=== PATIENT | female | born 1985 | race Two or more races ===

== ENCOUNTER 2019-11-02 11:43 | Emergency (ER) | payer OTHER, SELFPAY | END 2019-11-02 16:30 | disposition home or self-care (01) | PROVIDERS: Emergency Provider Physician Assistant; Family Provider Family Medicine; Visit Provider Physician Assistant | DX: N10 Acute pyelonephritis (principal); Z88.2 Allergy status to sulfonamides; F17.210 Nicotine dependence, cigarettes, uncomplicated ==

== ENCOUNTER 2021-10-13 14:14 | Emergency (ER) | payer MEDICAID, SELFPAY ==
[2021-10-13 14:37] VITALS: BP 157/72; PULSE 82; RESP 28; TEMP 36.5; O2SAT 97; BMI 21.6
[2021-10-13 14:56] LABS: Basophils % 0.2 %; Hematocrit 48.5 % (37.0-47.0); Hemoglobin 17.6 g/dL (11.5-15.3); Lymphocytes # 0.6 10^3/uL (0.8-4.8); Lymphocytes % 4.2 %; Mean Corpuscular HGB Conc 36.3 g/dL (30.0-36.0); Mean Corpuscular Hemoglobin 34.6 pg (28.0-34.0); Mean Corpuscular Volume 95.3 fl (81-99); Mean Platelet Volume 10.2 fL (7.4-10.4); Monocytes # 0.3 10^3/uL (0.2-0.9); Monocytes % 2.1 %; Neutrophils # 13.01 10^3/uL (1.8-7.7); Neutrophils % 93.2 %; Nucleated Red Blood Cells % 0 %; Platelet Count 278 10^3/cmm (130-400); Red Blood Count 5.09 10^6/uL (4.1-5.3); Red Cell Distribution Width 12.4 % (12.1-15.1)
--- NOTE | 2021-10-13 14:56 | ED_ITS ---
HPI - Abdominal Pain General: Chief Complaint: Abdominal Pain Stated Complaint: N/V SEVERE ABD PAINS Time Seen by Provider: 10/13/21 14:56 History of Present Illness: HPI narrative: Ms Pro is a 36 yo lady without significant history who presents with nausea, vomiting, and abdominal pain. Symtpoms started at about 1 am last night and woke her from sleep. [place] well when going to bed and can't think of specific inciting event. Since then sympomts have worsened. Pain is sharp in the mid abdomen and non radiating and severe in intensity. multiple episodes of associated non bilious and non bloody emesis. Course has persisted. No sick contacts. No other recent changes in health, exacerbating, or alleviating factors. Review of Systems General: Reports: 10 or more systems reviewed and unremarkable except in HPI and below Physical Exam Narrative: EXAM NARRATIVE: GENERAL/CONSTITUTIONAL - ill-appearing. distress due to pain Eyes - PERRL, no conjunctival injection ENMT - Atraumatic external nose and ears. dry mucous membranes NECK - supple. trachea midline CARDIOVASCULAR - regular rate and rhythm. Peripheral pulses 2+ and equal RESPIRATORY -clear to auscultation bilaterally. ABDOMEN/GI - TTP in mid region. No tenderness to percussion or evidence of remote peritonitis MSK - Extremities without obvious deformity or tenderness to palpation SKIN - Warm, Dry NEURO - alert and appropriately oriented. Moves all extremities equally. Course ED course: - Patient was seen and evaluated by me at bedside - Patient placed on cardiac monitors, IV access obtained - Initial evaluation notable for exam as above, distress due to pain - symptom treatment ordered - Labs notable for leukocytosis, hemoconcentration/dehydration - Imaging notable for RLQ inflamation without definite cause identified. - Upon serial reexamination after treatment the patient was markedly improved, she tolerated PO intake well. I discussed the case with general surgery director community organization and had a discussion with patient regarding findings. History is not classic for appendicitis. I offered admission for serial abdominal exams vs strict return precautions. Patient elected for discharge. - Based on patient history, evaluation, labs, and imaging as interpreted the most likely cause of the patient's condition is unclear, colitis vs other cause - The results of ED evaluation were discussed with the patient including prescriptions and/or symptomatic cares (if applicable) including appropriate and responsible use, followup plan, and return precautions. The patient verbalized understanding and felt safe for discharge. - Patient discharged in satisfactory condition. Vital Signs: Vital signs: Vital Signs Temperature 98.3 F 10/13/21 15:40 Pulse Rate 89 10/13/21 17:24 Respiratory Rate 17 10/13/21 17:24 Blood Pressure 130/80 10/13/21 17:24 Pulse Oximetry 96 10/13/21 17:24 MDM - Abdominal Pain Medical Records: Attestation: I reviewed the patient's medical records. Lab Data: Attestation: I reviewed the patient's lab results. Labs: Lab Results 10/13/21 10/13/21 10/13/21 14:47 14:48 14:48 WBC 14.0 10^3/uL H 10 ^3/uL (4.0-10.0) RBC 5.09 10^6/uL 10^6 /uL (4.1-5.3) Hgb 17.6 g/dL H g/dL (11.5-15.3) Hct 48.5 % H % (37.0-47.0) MCV 95.3 fl fl (81-99) MCH 34.6 pg H pg (28.0-34.0) MCHC 36.3 g/dL H g/dL (30.0-36.0) RDW 12.4 % % (12.1-15.1) Plt Count 278 10^3/cmm 10^3 /cmm (130-400) MPV 10.2 fL fL (7.4-10.4) Neut % (Auto) 93.2 % % Lymph % (Auto) 4.2 % % [place] % (Auto) 2.1 % % Eos % (Auto) 0.0 % % Baso % (Auto) 0.2 % % Neut # (Auto) 13.01 10^3/uL H 1 0^3/uL (1.8-7.7) Lymph # (Auto) 0.6 10^3/uL L 10^ 3/uL (0.8-4.8) [place] # (Auto) 0.3 10^3/uL 10^3/ uL (0.2-0.9) Eos # (Auto) 0.0 10^3/uL 10^3/ uL (0.0-0.8) Baso # (Auto) 0.0 10^3/uL 10^3/ uL (0.0-0.1) Nucleated RBC % (a uto) 0 % % Nucleated RBCs # 0.0 /100WBC /100W BC Sodium 140 mmol/L mmol/L (136-145) Potassium 3.9 mmol/L mmol/L (3.5-5.1) Chloride 99 mmol/L mmol/L (98-107) Carbon Dioxide 16 mmol/L L mmol/ L (22-29) Anion Gap 28.9 H (5-19) BUN 11 mg/dL mg/dL (6-20) Creatinine 0.4 mg/dL L mg/dL (0.5-0.9) GFR Calculation 178.6 mL/min H mL /min (90-130) Glucose 137 mg/dL H mg/dL (65-115) Calculated Osmolal ity 292 mOsm/kg mOsm/ kg (285-295) Calcium 9.6 mg/dL mg/dL (8.5-10.5) Total Bilirubin 1.4 mg/dL H mg/dL (0.15-1.2) AST 20 U/L U/L (0-32) ALT 19 U/L U/L (0-33) Alkaline Phosphata se 90 IU/L IU/L (35-105) Total Protein 7.8 g/dL g/dL (6.6-8.7) Albumin 5.2 g/dL g/dL (3.5-5.2) Globulin 2.6 g/dL g/dL (1.3-4.6) Lipase 9 U/L L U/L (13-60) HCG, Qual Negative (Negative) Urine Color Urine Appearance Urine pH Ur Specific Gravit y Urine Protein Urine Glucose (UA) Urine Ketones Urine Blood Urine Nitrate Urine Bilirubin Prot Sulfosalicyli c Acd Urine Urobilinogen Ur Leukocyte Jasmina ase Urine RBC Urine WBC Ur Squamous Epith Cells Amorphous Sediment Urine Bacteria 10/13/21 10/13/21 16:17 16:17 WBC RBC Hgb Hct MCV MCH MCHC RDW Plt Count MPV Neut % (Auto) Lymph % (Auto) [place] % (Auto) Eos % (Auto) Baso % (Auto) Neut # (Auto) Lymph # (Auto) [place] # (Auto) Eos # (Auto) Baso # (Auto) Nucleated RBC % (a uto) Nucleated RBCs # Sodium Potassium Chloride Carbon Dioxide Anion Gap BUN Creatinine GFR Calculation Glucose Calculated Osmolal ity Calcium Total Bilirubin AST ALT Alkaline Phosphata se Total Protein Albumin Globulin Lipase HCG, Qual Negative (Negative) Urine Color Yellow (Yellow) Urine Appearance Clear (CLEAR) Urine pH 9 H (5-7) Ur Specific Gravit y 1.010 (1.005-1.030) Urine Protein Trace (Negative) Urine Glucose (UA) Norm (Normal) Urine Ketones 3+ H (Negative) Urine Blood Neg (Negative) Urine Nitrate Negative (Negative) Urine Bilirubin Neg (Negative) Prot Sulfosalicyli c Acd Negative (Negative) Urine Urobilinogen Norm mg/dL mg/dL (Negative) Ur Leukocyte Jasmina ase Negative (Negative) Urine RBC 0-4 /hpf H /hpf (0-2) Urine WBC 5-10 /hpf H /hpf (0-5) Ur Squamous Epith Cells 0-4 /hpf H /hpf (0-5) Amorphous Sediment Not Reportable Urine Bacteria Trace /hpf /hpf (NONE) Discharge Plan Discharge Patient Disposition: Home Clinical Impression: Abdominal pain, Nausea & vomiting Condition: Stable Prescriptions: New ciprofloxacin HCl 500 mg tablet 500 mg PO BID Qty: 10 RF: 0 No Action lisinopril 20 mg Tablet 20 mg PO DAILY RF: 0 Cymbalta 20 mg Capsule,Delayed Release(Dr/Ec) 40 mg PO DAILY RF: 0 Discharge Orders: Discharge ED (Routine); Ordered 10/13/21 Ordered By: Raghav Mayes Referrals: Lewis Hager MD [Primary Care Provider] - Discharge Diet: Advance as tolerated and Clear Liquid Discharge Activity: Resume usual activity Patient Instructions: Acute Nausea and Vomiting (ED), Abdominal Pain (ED), Opioid Safety Activity Restrictions/Additional Instructions: Thank you for visiting the emergency department. You were seen and evaluated for nausea vomiting and abdominal pain. As discussed the exact cause of your symptoms is somewhat unclear. There is inflammation in the right lower quadrant region however your appendix is not identified. You will be given prescriptions for medications to aid with symptoms and treat colitis if present. Return to the emergency department for worsening symptoms, any pain that migrates to the right lower quadrant, or anything else that you are concerned about and feel needs emergency department evaluation. Otherwise please follow- up with your primary care provider. Coding Level of Care Code ED Dividing Machine Operator for Anabell Grigsby
--- NOTE | 2021-10-13 15:04 | CT_ITS ---
WS: [id number] CT ABDOMEN AND PELVIS WITH CONTRAST HISTORY: abd pain generalized sudden onset, n/v intractable TECHNIQUE: Imaging performed of the abdomen and pelvis with IV contrast. Single phase imaging of the abdomen. Coronal and sagittal reformats are submitted. All CT scans at [facility] use at [address] one of these dose optimization techniques: automated exposure control; mA and/or kV adjustment per patient size (includes targeted exams where dose is matched to clinical indication); or iterative re construction. IV CONTRAST: Omnipaque 300; 95 mL IV. Oral contrast: No DLP: 747.83 mGy.cm COMPARISON: 11/02/2019 Lower thorax: Lung bases are clear. Heart is normal size. Small hiatal hernia. Liver/biliary system: Normal size with no intrahepatic dilatation. Gallbladder: Well distended gallbladder with numerous stones present. No adjacent gallbladder wall th ickening. Pancreas: Normal size pancreas and pancreatic duct. No adjacent inflammation. Spleen: Normal size spleen. No mass or infarct. Adrenal glands: Normal. Right kidney: Normal. Left kidney: Normal. Aorta: Mild atherosclerosis with no aneurysm. Lymphadenopathy: None. Free fluid: Tiny amount of free fluid is physiologic. GI tract: The appendix is not identified. On the prior examination from 11/02/2019 the appendix was i dentified deep within the pelvis. On today's examination the appendix cannot be identified but there is some inflammation. There is mild mucosal thickening involving the cecum but also peripheral enhanc ement of an adjacent RIGHT ovarian cyst. Abdominal wall: Unremarkable abdominal wall. No hernia. Pelvis: No free fluid or adenopathy within the pelvis. Peripherally enhancing RIGHT ovarian cyst is p robably a collapsing corpus luteum cyst. The cyst measures 2.6 x 2.6 cm. Bones: LEFT curvature lumbar spine. CT/CT abdomen pelvis w con* [id number] IMPRESSION: 1. The appendix is not identified. There is mild mucosal thickening in the RIG HT lower quadrant and mild inflammation. Cannot exclude appendicitis. These tia nges could be related to mild colitis. 2. There is an adjacent peripherally enhancing RIGHT ovarian cyst which is a c ollapsing corpus luteum which also may be contributing to some mild inflammator y change in the RIGHT lower quadrant. 3. Tiny amount of free fluid in the cul-de-sac is physiologic. 4. Cholelithiasis. No evidence for acute cholecystitis.
[2021-10-13 15:19] LABS: Alanine Aminotransferase 19 U/L (0-33); Albumin Level 5.2 g/dL (3.5-5.2); Alkaline Phosphatase 90 IU/L (35-105); Anion Gap 28.9 (5-19); Aspartate Amino Transferase 20 U/L (0-32); Blood Urea Nitrogen 11 mg/dL (6-20); Calcium 9.6 mg/dL (8.5-10.5); Carbon Dioxide 16 mmol/L (22-29); Chloride 99 mmol/L (98-107); Globulin 2.6 g/dL (1.3-4.6); Glomerular Filtration Rate 178.6 mL/min (90-130); Glucose 137 mg/dL (65-115); Lipase 9 U/L (13-60); Osmolality Calculated 292 mOsm/kg (285-295); Potassium 3.9 mmol/L (3.5-5.1); Sodium 140 mmol/L (136-145); Total Bilirubin 1.4 mg/dL (0.15-1.2); Total Protein 7.8 g/dL (6.6-8.7)
[2021-10-13] MEDS: ondansetron 2 mg/ML SDV 2 mL 4 MG IVP (15:30)
[2021-10-13 15:32] VITALS: RESP 18; O2SAT 100
[2021-10-13] MEDS: morphine 4 mg/mL SDV 1 mL IVP (15:32)
[2021-10-13 15:38] LABS: HCG, Serum Qual Negative (Negative)
[2021-10-13] MEDS: sodium chloride 0.9% 1,000 ML 999 ML IV (15:38)
[2021-10-13 15:40] VITALS: BP 164/96; PULSE 71; RESP 17; TEMP 36.8; O2SAT 99
[2021-10-13] MEDS: iohexol 300 mg/mL 100 mL Btl IV (15:54)
[2021-10-13 16:13] VITALS: BP 136/100; PULSE 83; RESP 18; O2SAT 100
[2021-10-13 16:27] VITALS: RESP 18
[2021-10-13] MEDS: HYDROmorphone 1 mg/mL INJ 1 mL 0.5 MG IVP (16:27)
[2021-10-13] MEDS: metoclopramide 5 mg/mL SDV 2 mL 10 MG IVP (17:00)
[2021-10-13 17:11] LABS: HCG Qualitative Urine. Negative (Negative)
[2021-10-13 17:14] LABS: Bilirubin Urine Neg (Negative); Blood Urine Neg (Negative); Glucose Urine UA Norm (Normal); Ketones Urine 3+ (Negative); Leukocyte Esterase Urine Negative (Negative); Nitrate Urine Negative (Negative); Protein Urine Trace (Negative); Urine Appearance Clear (CLEAR); Urine Color Yellow (Yellow); Urobilinogen Urine Norm (Negative); pH Urine 9 (5-7)
[2021-10-13 17:15] LABS: Add Urine Culture? No; Add Urine Microscopic? YES; Bacteria Urine TRACE /hpf; RBC Urine 0-4 /hpf (0-2); Squamous Epithelial Cell Urine 0-4 /hpf (0-5); Sulfosalicylic Acid Urine Negative (Negative)
[2021-10-13 17:24] VITALS: BP 130/80; PULSE 89; RESP 17; O2SAT 96
== END 2021-10-13 19:00 | disposition home or self-care (01) ==
PROVIDERS: Emergency Provider Emergency Medicine; PCP Family Medicine
DX: R10.9 Unspecified abdominal pain (principal); R11.2 Nausea with vomiting, unspecified
CPT/HCPCS: 74177; 80053; 81001; 81025; 83690; 84703; 85025; 96361; 96374; 96375; 99284; J1170; J2270; J2405; J2765; J7030; Q9967

== ENCOUNTER 2022-05-10 12:11 | Outpatient (CLI) | payer BC, MEDICAID, SELFPAY ==
--- NOTE | 2022-05-10 12:40 | XR_ITS ---
WS: [id number] KUB, AP view, 05/10/2022 Clinical Data: BACK PAIN/EVAL FOR RENAL CALCULI Comparison: None. Findings: No abnormal intraabdominal masses are seen. There is no dilatated small bowel or evidence of obstruct ion. There are numerous gallstones in the right upper quadrant. There is a moderate amount of air in the s tomach, small bowel and colon. XR/XR abdomen 1V* [id number] Impression: Cholelithiasis.
== END 2022-05-10 12:12 | disposition home or self-care (01) ==
PROVIDERS: PCP Clinical Nurse Specialist Adult Health; Visit Provider Clinical Nurse Specialist Adult Health
DX: M54.59 Other low back pain (principal); K80.20 Calculus of gallbladder without cholecystitis without obstruction
CPT/HCPCS: 74018; 81000; 87086

== ENCOUNTER 2022-05-15 11:35 | Outpatient (CLI) | payer BC, MEDICAID, SELFPAY ==
--- NOTE | 2022-05-15 11:43 | US_ITS ---
WS: [id number] RIGHT UPPER QUADRANT ULTRASOUND HISTORY: GALL STONE COMPARISON: None available. Liver: 15.0 cm in length. Normal size liver. No bile duct dilatation or mass. Portal Vein: Normal hepatopetal flow with monophasic waveform. Gallbladder: Normally distended. Numerous stones are present in the gallbladder lumen. No pericholecy stic fluid or gallbladder wall thickening. CBD: 0.2 cm Pancreas: Normal size and echogenicity. Right kidney: 10.6 cm in length. Normal size and echogenicity. No hydronephrosis or mass. Aorta and IVC: Unremarkable abdominal aorta and IVC. No ascites. US/US gall bladder [id number] IMPRESSION: 1. Cholelithiasis, numerous stones in the gallbladder lumen. No evidence for a cute cholecystitis at this time. 2. No bile duct dilatation.
== END 2022-05-15 11:36 | disposition home or self-care (01) ==
LOC: RAD 11:35
PROVIDERS: PCP Clinical Nurse Specialist Adult Health; Visit Provider Clinical Nurse Specialist Adult Health
DX: K80.20 Calculus of gallbladder without cholecystitis without obstruction (principal)
CPT/HCPCS: 76705; 80053; 81000; 83690; 85025; 85651; 86140

== ENCOUNTER → 2022-06-07 15:14 | Outpatient (BNVA) | payer BC, MEDICAID, SELFPAY | PROVIDERS: PCP Clinical Nurse Specialist Adult Health; Visit Provider Surgery | DX: K80.20 Calculus of gallbladder without cholecystitis without obstruction (principal) | CPT/HCPCS: 99203 ==

== ENCOUNTER 2022-06-28 07:22 | Emergency (ER) | payer BC, MEDICAID, SELFPAY ==
[2022-06-28] VITALS (9 sets, daily range): BP systolic 140–187; BP diastolic 94–127; PULSE 60–80; RESP 16–22; TEMP 36.9; O2SAT 97–100; BMI 21.1
--- NOTE | 2022-06-28 | US_ITS ---
WS: [id number] ULTRASOUND ABDOMEN LIMITED CLINICAL INFORMATION: RUQ abd pain COMPARISON: Ultrasound May 15, [address] 06/28/22 FINDINGS: Liver Size: Mild hepatomegaly. Craniocaudal length: 16.2 cm. Echogenicity: Normal. Surface nodularity: None. Mass (size and location): None. Bile ducts Intrahepatic ducts: Normal. Common bile duct diameter: 0.5 cm. Gallbladder Cholelithiasis Gallstones: Present Gallbladder sludge: None. Gallbladder wall thickening: None. Pericholecystic fluid: None. Sonographic Monte sign: Absent. Pancreas Normal as visualized. Right kidney: Normal. Hydronephrosis: None. Size: 10.9 cm x 4.8 cm x 4.4 cm. Abdominal aorta and IVC Visualized portions are normal. Ascites: None. US/US gall bladder [id number] IMPRESSION: 1. Mild hepatomegaly. 2. Shadowing cholelithiasis. No gallbladder wall thickening or pericholecystic fluid. 3. Normal common bile duct. 4. No hydronephrosis in RIGHT kidney.
--- NOTE | 2022-06-28 07:35 | ED_ITS ---
HPI - Abdominal Pain General: Chief Complaint: Abdominal Pain Stated Complaint: abdomen pain Time Seen by Provider: 06/28/22 07:25 Source: patient Mode of arrival: EMS History of Present Illness: 37-year-old female presents emergency room complaining of severe abdominal pain. Patient states she has been constipated the last 4 days has had nausea and vomiting. Planing of severe periumbilical pain radiating throughout her abdomen. She recently was worked up and had findings of cholelithiasis without cholecystitis and she is scheduled next week to have a cholecystectomy with Dr. Hood. She denies any fever sweats or chi lls she is having significant dry heaving on arrival here at home she has not passed any stool last several days has had vomiting that began overnight she denies any hematemesis or coffee-ground emesis. No other symptoms. No dysuria urgency or frequency. Her only previous abdominal surgery was a laparoscopic assisted vaginal hysterectomy. Patient does not use any medical marijuana. MD elicited complaint: abdominal pain Pertinent past history: constipation Onset (ago): hour(s) Pain Consistency: constant Location: Periumbilical Severity: severe Quality: cramping Radiation: none Exacerbating factors: nothing Relieving factors: nothing Associated Symptoms: Reports bloating, constipation, GI cramping, nausea and poor appetite; Denies anorexia, belching, change in bowel habits, change in stool character, chills, coffee ground emesis, diarrhea, dyspepsia, dysuria, excessive flatus, fever(s), heartburn, hematochezia, hematuria, hematemesis, fecal incontinence, loose stools, melena, syncope and vomiting Review of Systems Const: Denies: fever(s) or chills Card: Denies: syncope GI: Reports: nausea, constipation, bloating and GI cramping; Denies: vomiting, hematemesis, coffee ground emesis, heartburn, diarrhea, belching, excessive flatus, fecal incontinence, change in bowel habits, change in stool character, hematochezia or melena : Denies: dysuria or hematuria PFSH ED PFSH: Medical History Hypertension Surgical History Hx of facial fracture repair Hx of hysterectomy Hx of tonsillectomy Social History Smoking and tobacco status: current every day smoker Physical Exam Const: COMMON NORMALS: no acute distress GENERAL APPEARANCE: cooperative and comfortable ORIENTATION/CONSCIOUSNESS: Yes awake, Yes oriented to person, Yes oriented to place and Yes oriented to time HENMT: COMMON NORMALS: normocephalic, atraumatic and hearing grossly normal bilaterally HEAD & SCALP: normocephalic and atraumatic Resp: COMMON NORMALS: normal respiratory effort, No retractions, No use of accessory muscles and clear to auscultation bilaterally AUSCULTATION: clear to auscultation bilaterally Cardio: COMMON NORMALS: regular rate, regular rhythm and No murmurs present (C ardio) RATE: regular rate RHYTHM: regular rhythm GI: COMMON NORMALS: No hepatosplenomegaly present AUSCULTATION: Yes normoactive bowel sounds PALPATION: Yes Tenderness to palpation present (GI) (Epigastric right upper quadrant tenderness no guarding or rebound), No Guarding due to palpation present (GI) and Yes No hepatosplenomegaly present Extremity: COMMON NORMALS: normal to inspection, capillary refill normal, no clubbing, cyanosis or edema, no calf tenderness and no pedal edema Neuro: SENSORIUM/ORIENTATION: Yes oriented to person, Yes oriented to place and Yes oriented to time Skin: COMMON NORMALS: no rashes or lesions noted GENERAL SKIN EXAM: no rashes or lesions noted Course Vital Signs: Vital signs: Vital Signs Temperature 98.5 F 06/28/22 07:28 Pulse Rate 80 06/28/22 11:30 Respiratory Rate 22 H 06/28/22 11:30 Blood Pressure 170/115 06/28/22 11:30 Pulse Oximetry 98 06/28/22 11:30 Oxygen Delivery Me thod 06/28/22 11:30 MDM - Abdominal Pain Medical Decision Making Patient is scheduled for cholecystectomy discussed with Dr. Hood who felt she was more constipated. White count is not elevated liver enzymes are in normal ranges as well as a bilirubin. Dr. Hood came to the ER seen the patient and recommended laxative and enema patient declined and ultimately left AMA Medical Records I reviewed the patient's medical records. Lab Data I reviewed the patient's lab results. : 06/28/22 07:53 06/28/22 07:53 Labs/Radiology: Radiology Impressions Gallbladder Ultrasound 06/28/22 00:00 IMPRESSION: 1. Mild hepatomegaly. 2. Shadowing cholelithiasis. No gallbladder wall thickening or pericholecystic fluid. 3. Normal common bile duct. 4. No hydronephrosis in RIGHT kidney. Abdomen/Pelvis CT 06/28/22 07:35 IMPRESSION: 1. Cholelithiasis. No gallbladder wall thickening or pericholecystic fluid. 2. No hydronephrosis in either kidney. 3. Dense rectosigmoid constipation with distention of the rectum. 4. No free fluid in the abdomen or pelvis. 5. Normal appendix in the RIGHT lower quadrant pelvis 6. No other suspicious findings. Laboratory Results WBC 10.9 10^3/uL (4.0-10.0) H 06/28/22 07:53 RBC 4.54 10^6/uL (4.1-5.3) 06/28/22 07:53 Hgb 16.1 g/dL (11.5-15.3) H 06/28/22 07:53 Hct 49.5 % (37.0-47.0) H 06/28/22 07:53 MCV 109.0 fl (81-99) H 06/28/22 07:53 MCH 35.5 pg (28.0-34.0) H 06/28/22 07:53 MCHC 32.5 g/dL (30.0-36.0) 06/28/22 07:53 RDW 13.2 % (12.1-15.1) 06/28/22 07:53 Plt Count 247 10^3/cmm (130-400) 06/28/22 07:53 MPV 9.7 fL (7.4-10.4) 06/28/22 07:53 Neut % (Auto) 77.6 % 06/28/22 07:53 Lymph % (Auto) 14.6 % 06/28/22 07:53 [place] % (Auto) 5.4 % 06/28/22 07:53 Eos % (Auto) 1.7 % 06/28/22 07:53 Baso % (Auto) 0.4 % 06/28/22 07:53 Neut # (Auto) 8.49 10^3/uL (1.8-7.7) H 06/28/22 07:53 Lymph # (Auto) 1.6 10^3/uL (0.8-4.8) 06/28/22 07:53 [place] # (Auto) 0.6 10^3/uL (0.2-0.9) 06/28/22 07:53 Eos # (Auto) 0.2 10^3/uL (0.0-0.8) 06/28/22 07:53 Baso # (Auto) 0.0 10^3/uL (0.0-0.1) 06/28/22 07:53 Nucleated RBC % (auto) 0 % 06/28/22 07:53 Nucleated RBCs # 0.0 /100WBC 06/28/22 07:53 Sodium 138 mmol/L (136-145) 06/28/22 07:53 Potassium 3.6 mmol/L (3.5-5.1) 06/28/22 07:53 Chloride 102 mmol/L (98-107) 06/28/22 07:53 Carbon Dioxide 19 mmol/L (22-29) L 06/28/22 07:53 Anion Gap 20.6 (5-19) H 06/28/22 07:53 BUN 8 mg/dL (6-20) 06/28/22 07:53 Creatinine 0.5 mg/dL (0.5-0.9) 06/28/22 07:53 GFR Calculation 137.4 mL/min (90-130) H 06/28/22 07:53 Glucose 125 mg/dL (65-115) H 06/28/22 07:53 Calculated Osmolality 286 mOsm/kg (285-295) 06/28/22 07:53 Calcium 9.1 mg/dL (8.5-10.5) 06/28/22 07:53 Total Bilirubin 1.2 mg/dL (0.15-1.2) 06/28/22 07:53 AST 21 U/L (0-32) 06/28/22 07:53 ALT 16 U/L (0-33) 06/28/22 07:53 Alkaline Phosphatase 96 U/L (35-105) 06/28/22 07:53 Total Protein 7.0 g/dL (6.6-8.7) 06/28/22 07:53 Albumin 4.6 g/dL (3.5-5.2) 06/28/22 07:53 Globulin 2.4 g/dL (1.3-4.6) 06/28/22 07:53 Lipase 13 U/L (13-60) 06/28/22 07:53 Discharge Plan Discharge Patient Disposition: Left Against Medical Advice Clinical Impression: Constipation, Cholelithiasis Condition: Stable Prescriptions: No Action sertraline [Zoloft] 25 mg tablet 25 mg PO QAM ondansetron 4 mg tablet,disintegrating 4 mg PO Q6H PRN (Reason: nausea and vomiting) Qty: 60 0RF lisinopril 20 mg tablet 20 mg PO BID hydrocodone-acetaminophen 5-325 mg tablet 1 tab PO Q6H PRN (Reason: Pain) pantoprazole 40 mg tablet,delayed release (DR/EC) 40 mg PO DAILY Referrals: Clovis Mcnair, [facility] REPORT DEVELOPER [Primary Care Provider] - Coding Level of Care Code ED Auto Damage Adjuster for Anabell Grigsby
--- NOTE | 2022-06-28 07:35 | CT_ITS ---
WS: [id number] CT ABDOMEN PELVIS TECHNIQUE: Noncontrast CT of the abdomen and pelvis with coronal and sagittal reformatted images. CLINICAL INFORMATION: Abdominal pain COMPARISON: CT abdomen pelvis October 13, 2021 DLP: 391.[address] scans at [facility] use at least one of these dose optimization techniques: automated e xposure control; mA and/or kV adjustment per patient size (includes targeted exams where dose is matc hed to clinical indication); or iterative reconstruction. FINDINGS: Dense cholelithiasis. Mild hepatomegaly. Noncontrast spleen is normal. Lung bases are well aerated. A drenal glands are normal. Normal GE junction. Normal appendix in the RIGHT lower quadrant. No evidence of acute appendicitis. Lung bases are well a erated. Adrenal glands are normal. No hydronephrosis in either kidney. Normal caliber abdominal aorta. Mild aortic calcification. Fat-containing umbilical hernia Rectosigmoid constipation with distention of the rectum. No free fluid in the abdomen or pelvis. Hyst erectomy. CT/CT abdomen pelvis wo con [id number] IMPRESSION: 1. Cholelithiasis. No gallbladder wall thickening or pericholecystic fluid. 2. No hydronephrosis in either kidney. 3. Dense rectosigmoid constipation with distention of the rectum. 4. No free fluid in the abdomen or pelvis. 5. Normal appendix in the RIGHT lower quadrant pelvis 6. No other suspicious findings.
[2022-06-28] MEDS: ondansetron 2 mg/ML SDV 2 mL 4 MG IVP (07:47)
[2022-06-28] MEDS: sodium chloride 0.9% 1,000 ML 999 ML IV ×2 (07:47→09:53)
[2022-06-28] MEDS: HYDROmorphone 1 mg/mL INJ 1 mL 0.5 MG IVP ×4 (07:48→09:52)
[2022-06-28 08:00] LABS: Basophils % 0.4 %; Eosinophils # 0.2 10^3/uL (0.0-0.8); Eosinophils % 1.7 %; Hematocrit 49.5 % (37.0-47.0); Hemoglobin 16.1 g/dL (11.5-15.3); Lymphocytes # 1.6 10^3/uL (0.8-4.8); Lymphocytes % 14.6 %; Mean Corpuscular HGB Conc 32.5 g/dL (30.0-36.0); Mean Corpuscular Hemoglobin 35.5 pg (28.0-34.0); Mean Platelet Volume 9.7 fL (7.4-10.4); Monocytes # 0.6 10^3/uL (0.2-0.9); Monocytes % 5.4 %; Neutrophils # 8.49 10^3/uL (1.8-7.7); Neutrophils % 77.6 %; Nucleated Red Blood Cells % 0 %; Platelet Count 247 10^3/cmm (130-400); Red Blood Count 4.54 10^6/uL (4.1-5.3); Red Cell Distribution Width 13.2 % (12.1-15.1); White Blood Count 10.9 10^3/uL (4.0-10.0)
[2022-06-28 08:26] LABS: Alanine Aminotransferase 16 U/L (0-33); Albumin Level 4.6 g/dL (3.5-5.2); Alkaline Phosphatase 96 U/L (35-105); Aspartate Amino Transferase 21 U/L (0-32); Blood Urea Nitrogen 8 mg/dL (6-20); Calcium 9.1 mg/dL (8.5-10.5); Carbon Dioxide 19 mmol/L (22-29); Chloride 102 mmol/L (98-107); Globulin 2.4 g/dL (1.3-4.6); Glomerular Filtration Rate 137.4 mL/min (90-130); Glucose 125 mg/dL (65-115); Lipase 13 U/L (13-60); Osmolality Calculated 286 mOsm/kg (285-295); Sodium 138 mmol/L (136-145); Total Bilirubin 1.2 mg/dL (0.15-1.2)
[2022-06-28] MEDS: promethazine 25 mg/mL SDV 1 mL IM (08:39)
[2022-06-28 08:41] LABS: Anion Gap 20.6 (5-19); Potassium 3.6 mmol/L (3.5-5.1)
--- NOTE | 2022-06-28 12:01 | PC.NURSE ---
Patient at nurses station demanding to leave. This RN apolgized for wait time offered to speak with physician to request more pain meds, and continue care. Pt stating she wants her IV taken out she will go somewhere else. This RN removed IV, pt signed AMA form
== END 2022-06-28 12:07 | disposition left against medical advice (07) ==
PROVIDERS: Physician Assistant; Emergency Provider Family Medicine; PCP Clinical Nurse Specialist Adult Health
DX: K80.20 Calculus of gallbladder without cholecystitis without obstruction (principal); K59.00 Constipation, unspecified; I10 Essential (primary) hypertension
CPT/HCPCS: 74176; 76705; 80053; 83690; 85025; 96361; 96372; 96374; 96375; 96376; 99285; J1170; J2405; J2550; J7030

== ENCOUNTER 2022-07-05 09:42 | Day surgery (SDC) | payer BC, MEDICAID, SELFPAY ==
[2022-07-03 12:05] VITALS: BMI 21.1
[2022-07-05] VITALS (9 sets, daily range): BP systolic 124–150; BP diastolic 79–107; PULSE 112–121; RESP 15–28; TEMP 36.6–37.8; O2SAT 93–97
[2022-07-05] MEDS: sodium chloride 0.9% 1,000 ML 30 ML IV (10:07)
--- NOTE | 2022-07-05 10:22 | W.PM.OPSUD ---
Surgery/Procedure H&P Update DATE OF PROCEDURE: July 05, 2022 DATE H&P PERFORMED: 06/07/22 PREOP DIAGNOSIS: symptomatic cholelithiasis PLANNED PROCEDURE: Operation Date: 07/05/22 11:15 Proposed Procedures p Laparoscopic Cholecystectomy [id number](Not Applicable) - Alfonso Hood DO
--- NOTE | 2022-07-05 10:27 | ANES.PREANE2 ---
Pre-Anesthetic Assessment Height/Weight: Height 1.63 m Weight 55.792 kg Temp Pulse Resp BP Pulse Ox O2 Del Method 100.1 F H 112 H 18 150/107 97 07/05/22 09:50 07/05/22 09:50 07/05/22 09:50 07/05/22 09:50 07/05/22 09:50 07/05/22 09:50 Preop Diagnosis: symptomatic cholelithiasis Operation Date: 07/05/22 11:15 Proposed Procedures p Laparoscopic Cholecystectomy 48692(Not Applicable) - Alfonso Hood DO Familial anesthetic complications: None Was Beta Rowena taken within 24 hours: N/A Was Clonidine taken within 24 hours: N/A Last intake: Intake Last Liquid Date 07/05/22 Last Liquid Time 00:00 Last Solid Date 07/04/22 Last Solid Time 21:00 Social No alcohol and No tobacco Exam alert, oriented x 3, clear to auscultation bilaterally and regular rate & rhythm Airway Submandibular: within normal limits Cervical ROM: within normal limits Mallampati: Class I Comments: Comments: False upper teeth History/ROS No significant complaints Pulmonary None reported CV/HEM Hypertension None reported Hepatic None reported GI Cholelithisais Metabolic None reported Musc/skel None reported Neuropsych None reported Anesthetic Plan ASA status: 2 Anesthesia: Anesthesia Evaluation and General Other: We discussed risk and benefits of general anesthesia including PONV, sore throat (sometimes severe), corneal abrasion, positioning and peripheral nerve injuries, life threatening allergic reaction, post operative ICU admission requiring prolonged intubation, stroke, heart attack, , and rare incidences of recall. Patient consents to proceed with general anesthesia. Patient very self conscious about her upper false teeth. We discussed rational for removing prior to surgery, which patient does understand, however this made her very tearful. She apologized for being emotional, which I empathized with stating I completely understood and there was no reason for her to apologize, recongizing we each have our own set of things that bother us. Plan to go to OR with false teeth in discussed with INTERNET ASSESSOR. In OR will remove her false teeth prior to induction, and put back in as soon as patient is recovered and able to put her teeth in herself. Pre op midazolam and scopalamine patch ordered. Risk of > 500 ml blood loss (7ml/kg in children): No Medications/Allergies Home Medications Medication Instructions Recorded Confirmed Last Taken Type lisinopril 20 mg tablet 20 mg PO BID 06/07/22 07/05/22 07/04/22 History sertraline 25 mg tablet (Zoloft) 25 mg PO QAM 06/07/22 07/05/22 07/04/22 History ondansetron 4 mg disintegrating 4 mg PO Q6H PRN nausea and 06/20/22 07/03/22 Unknown Rx tablet vomiting #60 tabs pantoprazole 40 mg tablet,delayed 40 mg PO DAILY 06/28/22 07/05/22 07/04/22 History release Allergies Allergy/AdvReac Type Severity Reaction Status Date / Time Sulfa (Sulfonamide Allergy ADR-Swelling Verified 07/05/22 09:48 Antibiotics) of the Eye Current Medications Generic Name Dose Route Start Last Admin Trade Name Freq PRN Reason Stop Dose Admin Sodium Chloride 1,000 mls @ 30 mls/hr 07/05/22 09:45 07/05/22 10:07 Sodium Chloride 0.9% IV 07/06/22 09:44 30 mls/hr .Q24H ROCIO Administration PFSH Anesthesia Medical History Hypertension Surgical History Hx of facial fracture repair Hx of hysterectomy Hx of tonsillectomy Social History Smoking and tobacco status: current every day smoker Data Anesthesia Cardiac Studies: No Data to Display
[2022-07-05] MEDS: scopolamine 1.5 Patch 1 PATCH TRANSDERMA (10:33)
[2022-07-05] MEDS: midazolam 1 mg/mL INJ 2 mL 2 MG IVP (10:41)
[2022-07-05] MEDS: ceFAZolin 2,000 MG in sodium chloride 0.9% (plus) 50 ML 100 MG IV (10:42)
--- NOTE | 2022-07-05 11:32 | P.OP_ITS ---
Operative Report Date of procedure: July 05, 2022 Pre-op diagnosis: Preop Diagnosis symptomatic cholelithiasis Post-op diagnosis: same Procedure done: Laparoscopic cholecystic drain Specimens removed/disposition: Gallbladder Surgeon: Dr. Alfonso Hood DO Anesthesia: General Estimated blood loss (mL): 5 Complications: None apparent Brief History: This is a 37-year-old female that presented with symptomatic cholelithiasis. Laparoscopic cholecystectomy was indicated. The risks and benefits of the procedure were explained and documented. Procedure: Patient was wheeled into the operative room and placed on the OR table in a supine position. Abdomen was inspected prepped and draped in usual sterile fashion. Time-out was performed and all present were in agreement. A 15 blade scalp was used to make a stab incision in the left upper quadrant and intra- abdominal insufflation was achieved using a Veress needle. After localizing the tissue incisions were made and a 5 millimeter trocar was placed into the umbilicus as well as 2 in the right upper quadrant. A 12 millimeter trocar was placed in the epigastrium. Gallbladder was grasped and elevated. The triangle of Calot was carefully dissected using blunt dissection and electrocautery until the triangle of Calot clearly identified. The cystic duct was clipped proximally and double clipped distally. The duct was then ligated proximally. The cystic artery was doubly clipped and ligated. The gallbladder was then removed from the liver bed using electrocautery. The gallbladder was removed from the abdomen using an Endo-Catch bag through the epigastric incision. The liver bed was inspected and no bleeding was seen. The abdomen was irrigated and suctioned. All ports removed. Skin was washed and dried. Incisions were closed with 3-0 and 4-O Vicryl in a subcuticular interrupted fashion. Skin glue was applied. Patient tolerated the procedure well.
[2022-07-05] MEDS: fentaNYL 50 mcg/mL INJ 2mL IVP (11:46)
[2022-07-05] MEDS: HYDROcodone-acetaminophen 7.5-325 mg Tablet 1 TAB PO (12:10)
--- NOTE | 2022-07-05 15:11 | ANE.PACU2 ---
Inpatient post-anesthesia follow up: Airway intact: Yes Vital signs: Temperature 98 F Pulse Rate 117 Respiratory Rate 15 Blood Pressure 124/79 Pulse Oximetry 95 Oxygen Delivery Me thod Room Air Oxygen Flow Rate 6 Fraction of Inspir ed Oxygen Hydration adequate: Yes Nausea and vomiting: No Pain level: 1 Mental status: Baseline
== END 2022-07-05 12:45 | disposition home or self-care (01) ==
PROVIDERS: PCP Clinical Nurse Specialist Adult Health; Visit Provider Surgery
PROC: 0FT44ZZ Resection of Gallbladder, Percutaneous Endoscopic Approach (ICD-10-PCS; CPT 47562; principal; 2022-07-05 11:05)
DX: K80.10 Calculus of gallbladder with chronic cholecystitis without obstruction (principal); F17.200 Nicotine dependence, unspecified, uncomplicated; Z88.2 Allergy status to sulfonamides
CPT/HCPCS: 47562; 88304; J1100; J1170; J1200; J1885; J2250; J2405; J2704; J3010; J3490; J7030

== ENCOUNTER 2022-08-13 10:47 | Outpatient (CLI) | payer BC, MEDICAID, SELFPAY ==
--- NOTE | 2022-08-13 10:59 | XRR_ITS ---
PROCEDURE INFORMATION: Exam: XR Left Hand Exam date and time: 08/13/2022 11:02 AM Age: 37 years old Clinical indication: Pain and injury or trauma; Blunt trauma (contusions or hematomas); Injury details: Fell, tried to catch fall with left had, pain and swelling in the hand now; Additional info: Left hand pain after a fall TECHNIQUE: Imaging protocol: Radiologic exam of the Left hand. Views: 3 or more views. COMPARISON: No relevant prior studies available. FINDINGS: Bones/joints: Negative for acute bony abnormality Soft tissues: Normal. XR/XR hand LT min 3V* [id number] IMPRESSION: No acute findings.
== END 2022-08-13 10:48 | disposition home or self-care (01) ==
PROVIDERS: PCP Clinical Nurse Specialist Adult Health; Visit Provider Clinical Nurse Specialist Adult Health
DX: M79.642 Pain in left hand (principal)
CPT/HCPCS: 73130

== ENCOUNTER → 2022-11-06 10:06 | Outpatient (BNVA) | payer BC, MEDICAID, SELFPAY | PROVIDERS: PCP Clinical Nurse Specialist Adult Health; Visit Provider Nurse Practitioner Family | DX: J11.1 Influenza due to unidentified influenza virus with other respiratory manifestations (principal) | CPT/HCPCS: 87400 ==

== ENCOUNTER 2023-02-27 10:30 | Emergency (ER) | payer BC, MEDICAID, SELFPAY ==
[2023-02-27 11:32] VITALS: BP 147/81; PULSE 82; RESP 16; TEMP 36.9; O2SAT 98
--- NOTE | 2023-02-27 11:54 | XR_ITS ---
WS: [id number] Exam: XR finger RT min 2V [id number] Date/Time of Exam: 02/27/2023 11:56 AM Reason For Exam: trauma/infection The right index finger is targeted for radiographic evaluation. No acute fracture or dislocation. No bone destruction. An opaque density is seen in the distal soft t issues of the index finger and may represent a foreign body. XR/XR finger RT min 2V [id number] IMPRESSION: 1. No bony injury or bone destruction. 2. Complex opaque density seen in the distal soft tissues of the index finger t hat could be a foreign body.
--- NOTE | 2023-02-27 11:55 | W.ED.EXTPRO ---
HPI - Extremity Problem General: Chief complaint: Extremity Injury, Upper Stated complaint: right index finger injury Time Seen by Provider: 02/27/23 11:38 Source: patient Mode of arrival: ambulatory Limitations: no limitations History of Present Illness: Patient is a nice 37-year-old female presents to ED today with concerns of an infection to her right index finger. Patient states 2 days ago while chopping vegetables she accidentally amputated the very distal portion of her palmar fat pad. Patient was seen at urgent care and had the distal wound cauterized with silver nitrate. She states since then she has now noticed swelling and redness and worsening pain. MD Complaint: extremity pain Onset (ago): day(s) Pain Consistency: constant Location: right Radiation: none Relieving factors: nothing Exacerbating factors: nothing Associated symptoms: Deny fever(s) Review of Systems Const: Denies: fever(s), chills, body aches, fatigue or malaise Musc: Reports: extremity pain (R index finger) Neuro: Denies: numbness in extremities or sensory changes PFSH ED PFSH: Medical History Hypertension Major depression Traumatic amputation of tip of finger of right hand Visual impairment of right eye Surgical History Hx of facial fracture repair Hx of hysterectomy Hx of tonsillectomy S/P cholecystectomy Family History Father Cancer prostate Other Hyperlipidemia Social History Smoking and tobacco status: current every day smoker Alcohol intake: current Alcohol intake frequency: holidays/special occasions only Physical Exam Const: COMMON NORMALS: no acute distress, average body habitus, patient oriented x3, no limitations, healthy appearing, alert and well nourished Resp: COMMON NORMALS: normal respiratory effort Cardio: COMMON NORMALS: regular rate and regular rhythm RATE: regular rate RHYTHM: regular rhythm Extremity: GENERAL: Yes normal exam except as noted Fingers-Fingertip Front+Back: 1. distal finger pad amputated; silver nitrate cauterization evident and silver nitrate staining to distal finger tip noted-this could be removed somewhat with alcohol swab; palmar pad does appear red and slightly swollen; no felon noted Neuro: COMMON NORMALS: patient oriented x3, moves all extremities, no focal motor deficits and no sensory deficits noted SENSORIUM/ORIENTATION: Yes alert Skin: NARRATIVE SKIN EXAM: see above Course Vital Signs: Vital signs: Vital Signs Temperature 98.5 F 02/27/23 11:32 Pulse Rate 82 02/27/23 11:32 Respiratory Rate 16 02/27/23 11:32 Blood Pressure 147/81 02/27/23 11:32 Pulse Oximetry 98 02/27/23 11:32 MDM - Extremity (Nontraumatic) Medical Decision Making Silver nitrate staining noted to finger tip and discoloration does not represent necrosis-was able to somewhat wipe off with alcohol swab. Density noted on XR consistent with silver nitrate and not a foreign body especially given her history. She was given IM Ancef and and will place on Keflex at home. No felon or drainable infection at this time. Will place referral for case management for ortho follow up. Return to ED precautions given. Lab Data Radiology Impressions Finger X-Ray 02/27/23 11:54 IMPRESSION: 1. No bony injury or bone destruction. 2. Complex opaque density seen in the distal soft tissues of the index finger that could be a foreign body. Discharge Plan Discharge Patient Disposition: Home Clinical Impression: Traumatic amputation of tip of finger Qualifiers: Encounter type: subsequent encounter Qualified Code(s): S68.119D - Complete traumatic metacarpophalangeal amputation of unspecified finger, subsequent encounter Cellulitis of index finger Qualifiers: Laterality: right Qualified Code(s): L03.011 - Cellulitis of right finger Condition: Stable Prescriptions: New hydrocodone-acetaminophen 5-325 mg tablet 1 tab PO Q6H PRN (Reason: pain) Qty: 14 0RF cephalexin 500 mg capsule 500 mg PO Q6H 7 Days Qty: 28 0RF No Action (DME) left hand hand brace See Rx Instructions .Route .MEDSUPPLY Qty: 1 0RF Rx Instructions: As directed for suspected fracture of 4th and/or 5th metacarpal sertraline [Zoloft] 25 mg tablet 25 mg PO QAM Qty: 30 11RF lisinopril 20 mg tablet 20 mg PO BID Discharge Orders: Discharge ED (Routine); Ordered 02/27/23 Ordered By: Lupe Ibarra Referrals: Clovis Mcnair NP [Primary Care Provider] - Activity Restrictions/Additional Instructions: Begin your antibiotics immediately. Case management should contact you to set you up with your orthopedic follow-up appointment. Keep wound clean with warm soap and water. You need to return to the emergency department for worsening pain, redness, swelling, fevers, or any other concerns you may have. Coding Level of Care Code ED Reciprocating Drill Operator for Anabell Grigsby
[2023-02-27] MEDS: ceFAZolin 1,000 MG in water for injection-sterile 2.5 ML 1 MG IM (13:08)
--- NOTE | 2023-02-27 13:15 | PC.NURSE ---
pt finger soaked in betadine. black color coming off.
--- NOTE | 2023-02-27 13:20 | DCPLANNER ---
Addendum entered by Alice Wheeler 02/28/23 08:27: communications station manager received the following message from the ortho clinic regarding follow up appointment: spoke to patient - she didnt really feel like she needed an ortho f/u at this time. she will see how the round of anti biotics takes. I told her to give us a call if she changes her mind Original Note: communications station manager had message to schedule a follow up appointment for patient with ortho. communications station manager sent patients information to the front office staff at ortho. Patients information will be printed and reviewed. Clinic will call patient with appointment information.
== END 2023-02-27 13:10 | disposition home or self-care (01) ==
PROVIDERS: Emergency Provider Physician Assistant; PCP Clinical Nurse Specialist Adult Health
DX: S68.119A Complete traumatic metacarpophalangeal amputation of unspecified finger, initial encounter (principal); L03.011 Cellulitis of right finger; S68.110A Complete traumatic metacarpophalangeal amputation of right index finger, initial encounter; F17.210 Nicotine dependence, cigarettes, uncomplicated; I10 Essential (primary) hypertension; W26.0XXA Contact with knife, initial encounter
CPT/HCPCS: 73140; 96372; 99284; J0690

== ENCOUNTER → 2023-03-14 09:59 | Outpatient (BNVA) | payer BC, MEDICAID, SELFPAY | PROVIDERS: PCP Clinical Nurse Specialist Adult Health; Visit Provider Nurse Practitioner Family | DX: S68.120D Partial traumatic metacarpophalangeal amputation of right index finger, subsequent encounter (principal); X58.XXXD Exposure to other specified factors, subsequent encounter | CPT/HCPCS: 73130 ==

== ENCOUNTER → 2023-09-23 14:25 | Outpatient (BNVA) | payer BC, MEDICAID, SELFPAY | PROVIDERS: PCP Clinical Nurse Specialist Adult Health; Visit Provider Clinical Nurse Specialist Adult Health | DX: J06.9 Acute upper respiratory infection, unspecified (principal); R11.2 Nausea with vomiting, unspecified | CPT/HCPCS: 87426 ==

== ENCOUNTER 2023-10-30 12:44 | Emergency (ER) | payer BC, MEDICAID, SELFPAY ==
[2023-10-30 12:53] VITALS: BP 167/120; PULSE 107; RESP 16; TEMP 36.6; O2SAT 98; BMI 22.6
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
--- NOTE | 2023-10-30 13:37 | CTR_ITS ---
PROCEDURE INFORMATION: Exam: CT Abdomen And Pelvis Without Contrast Exam date and time: 10/30/2023 2:34 PM Age: 38 years old Clinical indication: Abdominal pain; Other: Bilat flank; Prior surgery; Surgery date: 6+ months; Surgery type: Gb. Hysterectomy; Patient HX: Bilateral flank pain with hematuria. ; Additional info: Rj flank pain, hematuria TECHNIQUE: Imaging protocol: Computed tomography of the abdomen and pelvis without contrast. Radiation optimization: All CT scans at this facility use at least one of these dose optimization techniques: automated exposure control; mA and/or kV adjustment per patient size (includes targeted exams where dose is matched to clinical indication); or iterative reconstruction. REPORTING DATA: Count of CT and Cardiac NM exams in prior 12 months: This patient has received 0 known CTs and 0 known cardiac nuclear medicine studies in the 12 months prior to the current study. COMPARISON: CT abdomen pelvis wo con [id number] 06/28/2022 8:56 AM RADIATION DOSE METRICS: Total DLP (mGy-cm): 245.83 FINDINGS: Liver: Findings consistent with fatty infiltration of the liver are identified. There is some areas of fatty sparing in the liver. No definite liver mass. Gallbladder and bile ducts: There has been a cholecystectomy. Pancreas: Normal. No ductal dilation. Spleen: Normal. No splenomegaly. Adrenal glands: Normal. No mass. Kidneys and ureters: There are punctate right renal calcifications. Mild bilateral hydronephrosis is suspected. There is probable inflammation along the mid and distal ureter. For example, as seen on series 3, image 117. No definite obstructing ureteral mass or calcification. No renal emphysema or abscess. Stomach and bowel: Unremarkable. No obstruction. No mucosal thickening. Appendix: The appendix is visualized and appears normal. Intraperitoneal space: Unremarkable. No free air. No significant fluid collection. Vasculature: Unremarkable. No abdominal aortic aneurysm. Lymph nodes: Unremarkable. No enlarged lymph nodes. Urinary bladder: The bladder is decompressed which limits evaluation. Reproductive: There has been a hysterectomy. Bones/joints: Degenerative change is identified in the spine. There is no evidence for acute fracture or malalignment. Soft tissues: Unremarkable. CT/CT kidney stone [id number] IMPRESSION: There is mild bilateral hydroureteronephrosis with mild inflammation along the ureters. This may be secondary to a recently passed stone versus pyelonephritis. Clinical correlation is advised.
[2023-10-30 13:41] LABS: Basophils # 0.1 10^3/uL (0.0-0.1); Basophils % 0.3 %; Eosinophils # 0.1 10^3/uL (0.0-0.8); Eosinophils % 0.4 %; Hematocrit 53.6 % (36-47); Lymphocytes # 0.8 10^3/uL (0.8-4.8); Lymphocytes % 4.3 %; Mean Corpuscular HGB Conc 35.4 g/dL (30-55); Mean Corpuscular Hemoglobin 40.1 pg (27-33); Mean Corpuscular Volume 113.1 fl (85-98); Mean Platelet Volume 9.3 fL (7.4-10.4); Monocytes # 0.8 10^3/uL (0.2-0.9); Monocytes % 4.5 %; Neutrophils # 16.67 10^3/uL (1.8-7.7); Neutrophils % 89.9 %; Nucleated Red Blood Cells % 0 %; Platelet Count 236 10^3/cmm (157-399); Red Blood Count 4.74 10^6/uL (3.85-5.65); Red Cell Distribution Width 13.2 % (12.1-15.1); White Blood Count 18.55 10^3/uL (3.29-11.43)
[2023-10-30 13:48] LABS: Urine Color Red (Yellow)
[2023-10-30 13:49] LABS: Bilirubin Urine 1+ (Negative); Blood Urine 3+ (Negative); Glucose Urine UA Norm (Normal); Ketones Urine 1+ (Negative); Nitrate Urine Negative (Negative); Protein Urine 3+ (Negative); Specific Gravity, Urine 1.015 (1.005-1.030); Urine Appearance Cloudy (CLEAR); pH Urine 7 (5-7)
[2023-10-30 13:50] LABS: Add Urine Microscopic? YES; Leukocyte Esterase Urine 2+ (Negative); RBC Urine 50-80 /hpf (0-2); Urobilinogen Urine 1 mg/dL (Negative); WBC Urine TOO NUMEROUS TO CNT /hpf (0-5)
[2023-10-30 13:51] LABS: Amorphous Sediment Urine 2+ /hpf; Bacteria Urine 2+ /hpf; Mucus Urine 1+ /hpf; Squamous Epithelial Cell Urine 0-4 /hpf (0-5)
[2023-10-30 13:52] LABS: Add Urine Culture? Yes
[2023-10-30 14:02] LABS: Alanine Aminotransferase 50 U/L (0-33); Albumin Level 4.6 g/dL (3.5-5.2); Alkaline Phosphatase 182 U/L (35-105); Anion Gap 16.9 (5-19); Aspartate Amino Transferase 56 U/L (0-32); Blood Urea Nitrogen 5 mg/dL (6-20); Calcium 9.5 mg/dL (8.5-10.5); Carbon Dioxide 30 mmol/L (22-29); Chloride 98 mmol/L (98-107); Glomerular Filtration Rate 136.6 mL/min (90-130); Glucose 141 mg/dL (65-115); HCG, Serum Qual Negative (Negative); Lipase 12 U/L (13-60); Osmolality Calculated 294 mOsm/kg (285-295); Sodium 142 mmol/L (136-145); Total Bilirubin 1.7 mg/dL (0.15-1.2); Total Protein 7.6 g/dL (6.6-8.7)
[2023-10-30 14:04] LABS: Potassium 2.9 mmol/L (3.5-5.1)
[2023-10-30] MEDS: ketorolac 30 mg/mL INJ 15 MG IVP (14:23)
[2023-10-30 14:24] VITALS: RESP 17; O2SAT 99
[2023-10-30] MEDS: morphine 4 mg/mL SDV 1 mL IVP (14:24)
[2023-10-30] MEDS: ondansetron 2 mg/ML SDV 2 mL 4 MG IVP (14:24)
[2023-10-30] MEDS: sodium chloride 0.9% 500 ML 999 ML IV (15:05)
[2023-10-30] MEDS: cefTRIAXone 2,000 MG in sodium chloride 0.9% (plus) 50 ML 100 MG IV (15:05)
[2023-10-30] MEDS: lactated ringers 1,000 ML 999 ML IV (15:36)
[2023-10-30 15:37] VITALS: RESP 17; O2SAT 99
[2023-10-30] MEDS: morphine 4 mg/mL SDV 1 mL 2 MG IVP (15:37)
[2023-10-30] MEDS: metoclopramide 5 mg/mL SDV 2 mL 10 MG IVP (16:00)
== END 2023-10-30 17:19 | disposition home or self-care (01) ==
PROVIDERS: Emergency Medicine; Emergency Provider Nurse Practitioner Family; PCP Clinical Nurse Specialist Adult Health
DX: N12 Tubulo-interstitial nephritis, not specified as acute or chronic (principal); I10 Essential (primary) hypertension; Z72.0 Tobacco use
CPT/HCPCS: 36415; 74176; 80053; 81001; 83690; 84703; 85025; 87077; 87086; 87186; 96365; 96375; 96376; 99285; J0696; J1885; J2270; J2405; J2765; J7040; J7120

== ENCOUNTER 2024-02-25 11:09 | Outpatient (CLI) | payer BC, MEDICAID, SELFPAY ==
--- NOTE | 2024-02-25 11:30 | MM_ITS ---
WS: [id number] BILATERAL 3D TOMOSYNTHESIS DIGITAL SCREENING MAMMOGRAPHY WITH CAD CLINICAL INFORMATION: screening for breast cancer HISTORY: COMPARISON: None. TECHNIQUE: Bilateral CC and MLO views. FINDINGS: The breasts are composed of heterogeneous fibroglandular density tissue, which can limit the detectio n of small underlying mass lesions.Clustered calcifications inner quadrant RIGHT breast near the 3 o' clock position recommend spot modification views and further evaluation. Unremarkable LEFT breast. IMPRESSION: MM/[place] [id number] BI-RADS: 0-Incomplete: Need additional imaging evaluation FOLLOW UP: Need Additional Imaging Recommend spot magnification views of the clustered calcifications RIGHT breast .
== END 2024-02-25 11:10 | disposition home or self-care (01) ==
LOC: RAD 11:09
PROVIDERS: PCP Clinical Nurse Specialist Adult Health; Visit Provider Clinical Nurse Specialist Adult Health
DX: Z12.31 Encounter for screening mammogram for malignant neoplasm of breast (principal); R92.323 Mammographic fibroglandular density, bilateral breasts
CPT/HCPCS: 77063; 77067

== ENCOUNTER 2024-03-19 11:14 | Outpatient (CLI) | payer BC, MEDICAID, SELFPAY ==
--- NOTE | 2024-03-19 11:30 | MM_ITS ---
WS: [id number] RIGHT 3D TOMOSYNTHESIS DIGITAL MAMMOGRAPHY WITH CAD CLINICAL INFORMATION: abnormal screening mammogram HISTORY: Additional imaging calcifications. COMPARISON: 02/25/2024 TECHNIQUE: 3 views of the right breast were obtained. FINDINGS: The right breast is composed of heterogeneous fibroglandular density tissue, which can limit the dete ction of small underlying mass lesions. Clustered punctate calcifications inner quadrant RIGHT breast near the 3 o'clock position. Spot magnification views demonstrate slightly heterogeneous coarse calcifications. These are probably benign and recommend 6-month follow-up with spot magnification views to confirm stability. MM/[place] [id number] IMPRESSION: BI-RADS: 3-Probably Benign FOLLOW UP: 6 Month Follow-up Recommend 6-month follow-up RIGHT diagnostic mammography with spot magnificatio n views to confirm stability.
== END 2024-03-19 11:15 | disposition home or self-care (01) ==
LOC: RAD 11:14
PROVIDERS: PCP Clinical Nurse Specialist Adult Health; Visit Provider Clinical Nurse Specialist Adult Health
DX: R92.8 Other abnormal and inconclusive findings on diagnostic imaging of breast (principal); R92.323 Mammographic fibroglandular density, bilateral breasts; R92.1 Mammographic calcification found on diagnostic imaging of breast
CPT/HCPCS: 77061; G0279

== ENCOUNTER 2024-04-03 09:28 | Emergency (ER) | payer BC, MEDICAID, SELFPAY ==
[2024-04-03] VITALS (10 sets, daily range): BP systolic 120–176; BP diastolic 88–100; PULSE 78–91; RESP 16–25; TEMP 36.6; O2SAT 84–100
--- NOTE | 2024-04-03 09:29 | XR_ITS ---
WS: [id number] Exam: XR chest 1V portable [id number] Date/Time of Exam: 04/03/2024 9:29 AM Reason For Exam: chest pain No priors. Findings: The lungs are clear and fully expanded. Costophrenic angles are sharp. No infiltrates. Bronchovascula r relief appears normal. Cardiac silhouette is unremarkable. Bony elements are intact. XR/XR chest 1V portable [id number] IMPRESSION: Unremarkable chest radiograph.
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
--- NOTE | 2024-04-03 09:32 | ECG_ITS ---
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 Measurements Intervals [place] Rate: 76 P: 78 AR: 142 QRS: 68 QRSD: 87 T: 54 QT: 403 QTc: 455 Interpretive Statements SINUS RHYTHM POSSIBLE LEFT ATRIAL ENLARGEMENT [-0.1mV P-WAVE IN V1/V2] Compared to ECG 08/12/2019 12:27:28 Sinus tachycardia no longer present Electronically Signed On 04-03-2024 12:32:50 CDT by Kobe Guzman M.D. [id number]
[2024-04-03] MEDS: lidocaine 2% viscous 15 ML, aluminum-mag hydrox-simethicon 30 ML, sucralfate oral liq 1 GM PO (09:44)
[2024-04-03] MEDS: ondansetron 2 mg/ML SDV 2 mL 4 MG IVP (09:44)
[2024-04-03 09:45] LABS: Basophils % 0.2 %; Eosinophils % 0.1 %; Hematocrit 54.5 % (36-47); Lymphocytes # 0.7 10^3/uL (0.8-4.8); Lymphocytes % 8.3 %; Mean Corpuscular HGB Conc 35.4 g/dL (30-55); Mean Corpuscular Hemoglobin 39.1 pg (27-33); Mean Corpuscular Volume 110.3 fl (85-98); Mean Platelet Volume 9.3 fL (7.4-10.4); Monocytes # 0.3 10^3/uL (0.2-0.9); Monocytes % 2.8 %; Neutrophils # 7.78 10^3/uL (1.8-7.7); Neutrophils % 88.4 %; Nucleated Red Blood Cells % 0 %; Platelet Count 233 10^3/cmm (157-399); Red Blood Count 4.94 10^6/uL (3.85-5.65); Red Cell Distribution Width 17.2 % (12.1-15.1); White Blood Count 8.81 10^3/uL (3.29-11.43)
[2024-04-03 09:58] LABS: HCG, Serum Qual Negative (Negative)
[2024-04-03 10:04] LABS: Alanine Aminotransferase 32 U/L (0-33); Albumin Level 4.2 g/dL (3.5-5.2); Alkaline Phosphatase 149 U/L (35-105); Aspartate Amino Transferase 39 U/L (0-32); Blood Urea Nitrogen 7 mg/dL (6-20); Calcium 9.4 mg/dL (8.5-10.5); Carbon Dioxide 28 mmol/L (22-29); Chloride 96 mmol/L (98-107); Creatinine Clr Calc Pharmacy 125.4892; Globulin 2.9 g/dL (1.3-4.6); Glucose 175 mg/dL (65-115); Osmolality Calculated 296 mOsm/kg (285-295); Sodium 142 mmol/L (136-145); Total Bilirubin 1.5 mg/dL (0.15-1.2); Total Protein 7.1 g/dL (6.6-8.7)
--- NOTE | 2024-04-03 10:04 | PC.NURSE ---
Manual B/P with auscultation pt sitting upright, legs uncrossed; L arm 160/98 & R arm 152/90
[2024-04-03 10:05] LABS: Troponin(5th) Baseline < 6 ng/L (0-10)
[2024-04-03 10:06] LABS: Anion Gap 22.3 (5-19); Potassium 4.3 mmol/L (3.5-5.1)
[2024-04-03 10:17] LABS: D Dimer 0.44 ug/mLFEU (0-0.59)
[2024-04-03] MEDS: metoclopramide 5 mg/mL SDV 2 mL 10 MG IVP (10:24)
[2024-04-03] MEDS: morphine 4 mg/mL SDV 1 mL IVP ×2 (10:25→12:25)
[2024-04-03] MEDS: enalaprilat 2.5 mg/2 mL SDV 1.25 MG IVP (10:26)
--- NOTE | 2024-04-03 10:34 | PC.NURSE ---
pt oxygen saturation decreased to 84% post 4mg morphine administration, this nurse applied 2L oxygen NC, saturation increased to 98%. pt states she feels sleepy. pt resting, respirations even and unlabored at 14/min.
--- NOTE | 2024-04-03 11:29 | ECG_ITS ---
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 Measurements Intervals [place] Rate: 62 P: 72 NV: 168 QRS: 59 QRSD: 88 T: 51 QT: 441 QTc: 448 Interpretive Statements SINUS RHYTHM POSSIBLE LEFT ATRIAL ENLARGEMENT [-0.1mV P-WAVE IN V1/V2] POSSIBLE ANTERIOR MYOCARDIAL INFARCTION , OF INDETERMINATE AGE [30 ms Q WAVE IN V3/V4, OR R < 0.2 mV IN V4] Compared to ECG 04/03/2024 09:32:58 Myocardial infarct finding now present Electronically Signed On 04-03-2024 12:35:03 CDT by Kobe Guzman M.D. [id number]
--- NOTE | 2024-04-03 11:57 | CT_ITS ---
WS: [id number] CT ABDOMEN PELVIS TECHNIQUE: Contrast-enhanced CT of the abdomen and pelvis with coronal and sagittal reformatted image s. CLINICAL INFORMATION: epigastric pain COMPARISON: CT 10/30 2023 DLP: 321.[address] scans at [facility] use at least one of these dose optimization techniques: automated e xposure control; mA and/or kV adjustment per patient size (includes targeted exams where dose is matc hed to clinical indication); or iterative reconstruction. FINDINGS: Marked hepatomegaly with diffuse geographic fatty filtration. Areas of fatty sparing similar to the p rior study. Cholecystectomy. Subsegmental atelectasis in the lung bases. Tiny esophageal hiatal herni a. Air-fluid level in the stomach. Diffuse gastric rugal enhancement extending into the duodenum susp icious for gastroduodenitis. This extends into the proximal jejunum Portal vein and splenic vein are patent. Normal visualized pancreas. Adrenal glands are normal. Katherine l renal parenchymal enhancement. No hydronephrosis. A few tiny nonobstructing RIGHT calyceal calculi. Normal caliber abdominal aorta. Celiac and SMA are patent. Aortic calcification. Normal sigmoid colon. Normal appendix in the RIGHT lower quadrant. Diffuse wall thickening involving the RIGHT colon extending to the hepatic flexure with submucosal enhancement suspicious for colitis. Enhancing ileal small bowel loops extending to the terminal ileum. Findings compatible with ileocolit is. Tiny fat-containing umbilical hernia. CT/CT abdomen pelvis w con* [id number] IMPRESSION: 1. Diffuse thickening of the gastric folds with submucosal enhancement extendi ng into the duodenum and proximal jejunum compatible with gastroduodenitis and proximal jejunitis. 2. Air-fluid level in the distended stomach. 3. Fluid distention of small bowel loops in the pelvis with diffuse mucosal en hancement extending to the terminal ileum. Associated diffuse thickening of the RIGHT colon with submucosal enhancement compatible with ileocolitis. 4. Moderate hepatomegaly with geographic fatty infiltration similar to the michael or study. 5. Small esophageal hernia. 6. Prior cholecystectomy.
[2024-04-03 12:27] LABS: Troponin 5 2HR Delta 0.00001 ABS# (0-10)
[2024-04-03] MEDS: LORazepam 2 mg/mL INJ 10 mL MDV 1 MG IVP (12:35)
[2024-04-03] MEDS: iohexol 350 mg/mL 500 mL Btl (per mL) IV (12:49)
[2024-04-03] MEDS: pantoprazole 40 mg SDV IVP (13:45)
== END 2024-04-03 14:01 | disposition home or self-care (01) ==
PROVIDERS: Emergency Provider Physician Assistant; PCP Clinical Nurse Specialist Adult Health
DX: K29.90 Gastroduodenitis, unspecified, without bleeding (principal); I10 Essential (primary) hypertension; Z72.0 Tobacco use
CPT/HCPCS: 36415; 71045; 74177; 80053; 84484; 84703; 85025; 85378; 93005; 96374; 96375; 96376; 99285; C9113; J2060; J2270; J2405; J2765; Q9967

== ENCOUNTER → 2024-07-13 08:52 | Outpatient (BNVA) | payer MEDICAID, SELFPAY | PROVIDERS: PCP Clinical Nurse Specialist Adult Health; Visit Provider Clinical Nurse Specialist Adult Health | DX: N95.1 Menopausal and female climacteric states (principal) | CPT/HCPCS: 82672; 83001 ==

== ENCOUNTER 2024-08-04 08:53 | Emergency (ER) | payer MEDICAID, SELFPAY ==
[2024-08-04] VITALS (8 sets, daily range): BP systolic 164–197; BP diastolic 98–126; PULSE 71–92; RESP 16–20; TEMP 37.1; O2SAT 92–100; BMI 18.8
--- NOTE | 2024-08-04 09:04 | CT_ITS ---
WS: [id number] CT ABDOMEN AND PELVIS WITH CONTRAST HISTORY: diffuse abdominal pain, vomiting/hematemesis? TECHNIQUE: Imaging performed of the abdomen and pelvis with IV contrast. Single phase imaging of the abdomen. Coronal and sagittal reformats are submitted. All CT scans at [facility] use at [address] [facility] one of these dose optimization techniques: automated exposure control; mA and/or kV adjustment per patient size (includes targeted exams where dose is matched to clinical indication); or iterative re construction. IV CONTRAST: Omnipaque 350; 100 mL IV. Oral contrast: No DLP: 340.25 mGy.cm COMPARISON: 04/03/2024 Lower thorax: Lung bases are clear. Heart is normal size. Distal esophageal wall thickening and edema . Submucosal edema at the distal esophagus. Liver/biliary system: Liver is enlarged and heterogeneous. Variable segmental areas of decreased and increased attenuation with enhancement. No portal vein thrombus identified. Gallbladder: Status post cholecystectomy. Pancreas: Normal size pancreas and pancreatic duct. No adjacent inflammation. Spleen: Normal size spleen. No mass or infarct. Adrenal glands: Normal. Right kidney: Normal. Left kidney: Normal. Aorta: Mild atherosclerosis with no aneurysm. Mesenteric arteries are well opacified. Lymphadenopathy: None. Free fluid: None. GI tract: GI tract is markedly abnormal. Beginning at the GE junction there is circumferential wall t hickening with submucosal edema. Stomach is minimally distended. Mild gastric wall thickening beginni ng through the antrum. Jejunal loops appear normal proximally. The distal jejunal loops are thickened and hyperemic. There is increasing enhancement within the distal small bowel loops. Beginning within the cecum there is marked wall thickening with a shaggy appearance. Submucosal edema. Bello colitis. T here is sparing of the rectum. Appendix is not definitely visualized. Abdominal wall: Unremarkable abdominal wall. No hernia. Pelvis: Well-distended urinary bladder. No significant fluid in the bladder. LEFT ovarian follicle. P rior hysterectomy. Bones: Negative. CT/CT abdomen pelvis w con* [id number] IMPRESSION: 1. Markedly abnormal GI tract. The extent of submucosal edema with wall thicke phuong and enhancement is more pronounced than 04/03/2024. 2. Distal esophageal wall edema from esophagitis. 3. Mild gastritis, jejunitis and ileitis. The most significant enhancement in the small bowel is in the mid to distal jejunum and ileum. Hyperemic smith with no obstructive pattern. Increasing fluid in the distal small bowel. 4. Near diffuse bello colitis. Diffuse submucosal edema with a shaggy wall and e nhancement with mild sparing of the rectum. 5. No free fluid or free air. 6. No thrombus in the mesenteric arteries. 7. Prior cholecystectomy and hysterectomy. 8. Variable attenuation throughout the liver is likely due to steatosis with a reas of sparing. Similar to the prior study.
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
[2024-08-04 09:09] LABS: Basophils % 0.3 %; Eosinophils # 0.1 10^3/uL (0.0-0.8); Eosinophils % 1.3 %; Hematocrit 52.5 % (36-47); Lymphocytes # 1.1 10^3/uL (0.8-4.8); Lymphocytes % 11.6 %; Mean Corpuscular HGB Conc 36.2 g/dL (30-55); Mean Corpuscular Hemoglobin 40.3 pg (27-33); Mean Corpuscular Volume 111.2 fl (85-98); Mean Platelet Volume 10.3 fL (7.4-10.4); Monocytes # 0.4 10^3/uL (0.2-0.9); Monocytes % 4.7 %; Neutrophils # 7.41 10^3/uL (1.8-7.7); Neutrophils % 81.8 %; Nucleated Red Blood Cells % 0 %; Platelet Count 184 10^3/cmm (157-399); Red Blood Count 4.72 10^6/uL (3.85-5.65); Red Cell Distribution Width 13.8 % (12.1-15.1); White Blood Count 9.07 10^3/uL (3.29-11.43)
[2024-08-04 09:38] LABS: HCG, Serum Qual Negative (Negative)
[2024-08-04 09:47] LABS: Alanine Aminotransferase 34 U/L (0-33); Albumin Level 4.6 g/dL (3.5-5.2); Alkaline Phosphatase 133 U/L (35-105); Aspartate Amino Transferase 54 U/L (0-32); Blood Urea Nitrogen 6 mg/dL (6-20); Calcium 9.1 mg/dL (8.5-10.5); Carbon Dioxide 26 mmol/L (22-29); Chloride 99 mmol/L (98-107); Creatinine Clr Calc Pharmacy 123.3686; Globulin 1.9 g/dL (1.3-4.6); Glucose 220 mg/dL (65-115); Lipase 13 U/L (13-60); Osmolality Calculated 302 mOsm/kg (285-295); Sodium 144 mmol/L (136-145); Total Bilirubin 0.9 mg/dL (0.15-1.2); Total Protein 6.5 g/dL (6.6-8.7)
[2024-08-04 09:50] LABS: Anion Gap 23.7 (5-19); Potassium 4.7 mmol/L (3.5-5.1)
[2024-08-04] MEDS: haloperidol inj 5 mg/mL INJ 1 mL 2.5 MG IVP (10:01)
[2024-08-04] MEDS: LORazepam 2 mg/mL INJ 1 mL 1 MG IVP (10:02)
[2024-08-04] MEDS: sodium chloride 0.9% 1,000 ML 999 ML IV ×2 (10:03→10:04)
[2024-08-04] MEDS: pantoprazole 40 mg SDV IVP (10:04)
[2024-08-04] MEDS: iohexol 350 mg/mL 500 mL Btl (per mL) IV (11:02)
[2024-08-04] MEDS: lidocaine 2% viscous 15 ML, aluminum-mag hydrox-simethicon 30 ML, sucralfate oral liq 1 GM PO (11:19)
[2024-08-04] MEDS: metoclopramide 5 mg/mL SDV 2 mL 10 MG IVP (11:20)
[2024-08-04] MEDS: enalaprilat 2.5 mg/2 mL SDV 1.25 MG IVP (11:20)
[2024-08-04 11:34] LABS: Bilirubin Urine Negative (Negative); Blood Urine Negative (Negative); Glucose Urine UA 1+ (Normal); Ketones Urine 1+ (Negative); Leukocyte Esterase Urine Negative (Negative); Nitrate Urine Negative (Negative); Protein Urine Trace (Negative); Urine Appearance Clear (CLEAR); Urine Color Yellow (Yellow); Urobilinogen Urine 0.2 mg/dL (Negative); pH Urine 8.5 (5-7)
[2024-08-04 11:49] LABS: Add Urine Microscopic? YES; UA Manual Slide Review YES; UA Slide Review UA Slide Review Perf
[2024-08-04 11:50] LABS: Add Urine Culture? No; RBC Urine RARE /hpf (0-2); WBC Urine 0-4 /hpf (0-5)
[2024-08-04] MEDS: hyDRALAzine 20 mg/mL INJ 1 mL 10 MG IVP ×2 (12:43→13:52)
[2024-08-04] MEDS: lisinopril 20 mg Tablet PO (13:30)
--- NOTE | 2024-08-04 13:41 | DCPLANNER ---
messaged gen surg for er f/u
== END 2024-08-04 14:42 | disposition home or self-care (01) ==
PROVIDERS: Emergency Provider Physician Assistant; PCP Clinical Nurse Specialist Adult Health
DX: K29.01 Acute gastritis with bleeding (principal); K52.9 Noninfective gastroenteritis and colitis, unspecified; K20.90 Esophagitis, unspecified without bleeding; F10.90 Alcohol use, unspecified, uncomplicated
CPT/HCPCS: 74177; 80053; 81001; 83690; 84703; 85025; 96361; 96374; 96375; 96376; 99285; J0360; J1630; J2060; J2470; J2765; J7030

== ENCOUNTER 2024-08-16 23:37 | Emergency (ER) | payer MEDICAID, SELFPAY ==
[2024-08-16 23:40] VITALS: BP 187/122; PULSE 94; RESP 18; O2SAT 96
[2024-08-17 00:34] LABS: Basophils % 0.4 %; Eosinophils # 0.1 10^3/uL (0.0-0.8); Eosinophils % 0.7 %; Hematocrit 51.6 % (36-47); Lymphocytes # 1.3 10^3/uL (0.8-4.8); Lymphocytes % 12.5 %; Mean Corpuscular HGB Conc 35.3 g/dL (30-55); Mean Corpuscular Hemoglobin 38.8 pg (27-33); Monocytes # 0.3 10^3/uL (0.2-0.9); Monocytes % 3.2 %; Neutrophils % 82.9 %; Nucleated Red Blood Cells % 0 %; Platelet Count 256 10^3/cmm (157-399); Red Blood Count 4.69 10^6/uL (3.85-5.65); Red Cell Distribution Width 14.6 % (12.1-15.1); White Blood Count 10.49 10^3/uL (3.29-11.43)
[2024-08-17] MEDS: ketorolac 30 mg/mL INJ 15 MG IVP (00:46)
[2024-08-17] MEDS: ondansetron 2 mg/ML SDV 2 mL 4 MG IVP ×2 (00:46→01:34)
[2024-08-17] MEDS: dexamethasone 4 mg/mL INJ 8 MG IVP (00:46)
[2024-08-17] MEDS: sodium chloride 0.9% 1,000 ML 999 ML IV (00:47)
[2024-08-17] MEDS: fentaNYL 50 mcg/mL INJ 2mL IVP (00:47)
[2024-08-17 00:52] VITALS: BP 191/141; PULSE 98; RESP 21; O2SAT 97
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
[2024-08-17 01:22] VITALS: BP 186/111; PULSE 79; RESP 15; O2SAT 91
[2024-08-17 01:25] LABS: INR 0.95 (0.8-1.2); Partial Thromboplastin Time 21.8 SECONDS (23.9-36.7)
[2024-08-17 01:31] LABS: Lactic Sepsis W/Reflex 1.8 mmol/L (0.5-2.2)
[2024-08-17] MEDS: haloperidol inj 5 mg/mL INJ 1 mL 3 MG IVP (01:35)
[2024-08-17 01:44] VITALS: BP 176/111; PULSE 70; RESP 17; O2SAT 95
[2024-08-17 02:35] LABS: Alanine Aminotransferase 25 U/L (0-33); Albumin Level 4.3 g/dL (3.5-5.2); Alkaline Phosphatase 104 U/L (35-105); Anion Gap 15.8 (5-19); Aspartate Amino Transferase 35 U/L (0-32); Blood Urea Nitrogen 8 mg/dL (6-20); Calcium 8.4 mg/dL (8.5-10.5); Carbon Dioxide 26 mmol/L (22-29); Chloride 106 mmol/L (98-107); Globulin 2.4 g/dL (1.3-4.6); Glucose 114 mg/dL (65-115); Lipase 13 U/L (13-60); Osmolality Calculated 297 mOsm/kg (285-295); Potassium 3.8 mmol/L (3.5-5.1); Sodium 144 mmol/L (136-145); Total Bilirubin 0.6 mg/dL (0.15-1.2); Total Protein 6.7 g/dL (6.6-8.7)
[2024-08-17 02:54] VITALS: BP 143/96; PULSE 84; RESP 14; O2SAT 94
== END 2024-08-17 03:47 | disposition home or self-care (01) ==
PROVIDERS: Emergency Provider Emergency Medicine; PCP Clinical Nurse Specialist Adult Health
DX: G43.909 Migraine, unspecified, not intractable, without status migrainosus (principal); R11.10 Vomiting, unspecified; K52.9 Noninfective gastroenteritis and colitis, unspecified; Z72.0 Tobacco use; I10 Essential (primary) hypertension
CPT/HCPCS: 36415; 80053; 83605; 83690; 85025; 85610; 85730; 86140; 96361; 96374; 96375; 96376; 99284; J1100; J1630; J1885; J2405; J3010; J7030

== ENCOUNTER 2024-08-20 09:58 | Outpatient (CLI) | payer MEDICAID, SELFPAY ==
--- NOTE | 2024-08-20 09:00 | MM_ITS ---
WS: [id number] RIGHT 3D TOMOSYNTHESIS DIGITAL MAMMOGRAPHY WITH CAD CLINICAL INFORMATION: abnormal mammogram HISTORY: 6-month follow-up COMPARISON: 03/19 and 02/25/2024 TECHNIQUE: 3 views of the right breast were obtained. FINDINGS: The right breast is composed of heterogeneous fibroglandular density tissue, which can limit the dete ction of small underlying mass lesions. Again seen are the clustered punctate calcifications in the q uadrant RIGHT breast near the 3 o'clock position. These have a coarse heterogeneous appearance and ar e unchanged. Recommend return to annual screening mammography. MM/MM diag RT tomosynthesis [id number] IMPRESSION: DENSITY: The breasts are heterogeneously dense, which may obscure small masses. BI-RADS: 2 - Benign FOLLOW UP: 1 Year Follow-up Recommend return to annual screening mammography.
== END 2024-08-20 09:59 | disposition home or self-care (01) ==
LOC: RAD 09:58
PROVIDERS: PCP Clinical Nurse Specialist Adult Health; Visit Provider Clinical Nurse Specialist Adult Health
DX: R92.8 Other abnormal and inconclusive findings on diagnostic imaging of breast (principal); R92.333 Mammographic heterogeneous density, bilateral breasts; R92.1 Mammographic calcification found on diagnostic imaging of breast
CPT/HCPCS: 77061; G0279

== ENCOUNTER 2024-09-01 06:30 | Day surgery (SDC) | payer MEDICAID, SELFPAY ==
[2024-09-01] VITALS (8 sets, daily range): BP systolic 156–190; BP diastolic 104–134; PULSE 73–120; RESP 12–18; TEMP 36.2–36.5; O2SAT 92–98; BMI 18.5
[2024-09-01] MEDS: sodium chloride 0.9% 1,000 ML 30 ML IV (06:54)
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
--- NOTE | 2024-09-01 07:06 | W.PM.OPSUD ---
Surgery/Procedure H&P Update DATE OF PROCEDURE: September 01, 2024 DATE H&P PERFORMED: 08/06/24 H&P UPDATE INFORMATION: I have reviewed H&P completed within last 30 days, I have examined patient prior to procedure and No changes to prior documentation PREOP DIAGNOSIS: cholelithiasis PLANNED PROCEDURE: Operation Date: 09/01/24 07:30 Proposed Procedures p EGD 03684, 26189, G0121, K8.20, K20.90, K51.00(Not Applicable) - Huy Rodrigues MD s Colonoscopy(Not Applicable) - Huy Rodrigues MD
[2024-09-01] MEDS: EPINEPHrine 1 mg/mL INJ XX (08:10)
[2024-09-01] MEDS: ondansetron 2 mg/ML SDV 2 mL 4 MG IVP (09:06)
[2024-09-01] MEDS: fentaNYL 50 mcg/mL INJ 2mL IVP (09:11)
[2024-09-01] MEDS: ondansetron 4 MG Tablet PO (10:00)
--- NOTE | 2024-09-01 10:15 | ANE.PACU2 ---
Inpatient post-anesthesia follow up: Airway intact: Yes Vital signs: Temperature 97.2 F Pulse Rate 79 Respiratory Rate 18 Blood Pressure 164/104 Pulse Oximetry 97 Oxygen Delivery Me thod Room Air Oxygen Flow Rate Fraction of Inspir ed Oxygen Hydration adequate: Yes Nausea and vomiting: No Pain level: 1 Mental status: Baseline
--- NOTE | 2024-09-01 11:19 | SUR.PHASEII ---
Upon waking in postop pt was vomiting clear bubbly liquid, c/o 9/10 abdominal pain and having elevated blood pressure. Bob Zurita CRNA administered zofran and lobetolol. Bowel sounds were present. Pt sat on toilet, passed gas, had small bowel movement, which included a scant amount of blood, pt rated abdominal pain 7/10. After monitoring pt for over an hour, Dr. Villalobos assessed and spoke with pt, stated he felt her vitals were suitable for discharge. Pt stated pain was tolerable, rated it 6/10 and stated she wanted to go home. Discharge information was discussed and given to pt and . After pt dressed she vomited a scant amount of clear bubbly liquid. Administered zofran 4mg PO, pt stated she was feeling better and pt was discharged.
== END 2024-09-01 10:15 | disposition home or self-care (01) ==
PROVIDERS: PCP Clinical Nurse Specialist Adult Health; Visit Provider Student in an Organized Health Care Education/Training Program
PROC: 0DJ08ZZ Inspection of Upper Intestinal Tract, Via Natural or Artificial Opening Endoscopic (ICD-10-PCS; CPT 43235; principal; 2024-09-01 07:30)
PROC: 0DJD8ZZ Inspection of Lower Intestinal Tract, Via Natural or Artificial Opening Endoscopic (ICD-10-PCS; CPT 45378; 2024-09-01 07:30)
DX: K51.00 Ulcerative (chronic) pancolitis without complications (principal); K20.90 Esophagitis, unspecified without bleeding; K80.20 Calculus of gallbladder without cholecystitis without obstruction; K52.9 Noninfective gastroenteritis and colitis, unspecified; K29.50 Unspecified chronic gastritis without bleeding; D12.2 Benign neoplasm of ascending colon; D12.8 Benign neoplasm of rectum; K21.9 Gastro-esophageal reflux disease without esophagitis; I10 Essential (primary) hypertension
CPT/HCPCS: 43239; 45380; 45385; 88305; 88342; J0171; J2405; J2704; J3010; J3490; J7030; Q0162

== ENCOUNTER 2024-09-01 15:11 | Observation (INO) | payer MEDICAID, SELFPAY ==
[2024-09-01 15:18] VITALS: BP 195/116; PULSE 69; RESP 20; TEMP 36.4; O2SAT 100
--- NOTE | 2024-09-01 15:41 | CTR_ITS ---
PROCEDURE INFORMATION: Exam: CT Chest Without Contrast; Diagnostic Exam date and time: 09/01/2024 4:04 PM Age: 39 years old Clinical indication: Other: Vomiting blood TECHNIQUE: Imaging protocol: Diagnostic computed tomography of the chest without contrast. Radiation optimization: All CT scans at this facility use at least one of these dose optimization techniques: automated exposure control; mA and/or kV adjustment per patient size (includes targeted exams where dose is matched to clinical indication); or iterative reconstruction. COMPARISON: CT abdomen pelvis w con* [id number] 08/04/2024 10:57 AM RADIATION DOSE METRICS: Total DLP (mGy-cm): 382.11 FINDINGS: Lungs: Unremarkable. No consolidation. No masses. Pleural spaces: Unremarkable. No pneumothorax. No pleural effusion. Heart: Unremarkable. No cardiomegaly. No pericardial effusion. Coronary arteries: There is no evidence of coronary artery calcifications. Lymph nodes: Unremarkable. No enlarged lymph nodes. Vasculature: Unremarkable. No aortic aneurysm. Bones/joints: Unremarkable. No acute fracture. Soft tissues: Unremarkable. PROCEDURE INFORMATION: Exam: CT Abdomen And Pelvis Without Contrast Exam date and time: 09/01/2024 4:04 PM Age: 39 years old Clinical indication: Other: Vomiting blood TECHNIQUE: Imaging protocol: Computed tomography of the abdomen and pelvis without contrast. Radiation optimization: All CT scans at this facility use at least one of these dose optimization techniques: automated exposure control; mA and/or kV adjustment per patient size (includes targeted exams where dose is matched to clinical indication); or iterative reconstruction. COMPARISON: CT abdomen pelvis w con* [id number] 08/04/2024 10:57 AM RADIATION DOSE METRICS: Total DLP (mGy-cm): 382.11 FINDINGS: Lungs: Lung bases are clear. No pleural effusion. Liver: The liver demonstrates diffuse fatty infiltration. No evidence of liver mass. Gallbladder and biliary ducts: The gallbladder has been resected. Pancreas: Normal. No ductal dilation. Spleen: Normal. No splenomegaly. Adrenal glands: Normal. No mass. Kidneys and ureters: See Intraperitoneal space finding. Stomach and bowel: Unremarkable. No obstruction. No mucosal thickening. Appendix: The appendix is clearly identified and is unremarkable. Intraperitoneal space: There is abnormal extraperitoneal air surrounding the cecum and extending superiorly through the paracolic gutter up into the right perinephric space. The air also extends more superiorly and medially to surround the inferior vena cava and dome of the liver. There is no evidence of peritoneal air however. Vasculature: See Intraperitoneal space finding. Lymph nodes: Unremarkable. No enlarged lymph nodes. Urinary bladder: Unremarkable as visualized. Reproductive: There is a 5 cm cyst involving the left ovary. A 4.1 cm septated cyst involves the right ovary. Bones/joints: Unremarkable. No acute fracture. Soft tissues: Unremarkable. CT/[place] [id number] IMPRESSION: No acute findings. IMPRESSION: 1. Extraperitoneal air involving the right abdomen as described above. Uncertain of the etiology. Considerations would include extraperitoneal perforation of a colonic diverticulum. 2. Bilateral ovarian cysts
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
[2024-09-01] MEDS: metoclopramide 5 mg/mL SDV 2 mL 10 MG IVP (15:54)
[2024-09-01] MEDS: diphenhydrAMINE 50 mg/mL SDV 1mL IVP (15:55)
[2024-09-01] MEDS: morphine 4 mg/mL SDV 1 mL IVP ×2 (15:56→20:01)
[2024-09-01 16:39] LABS: Basophils % 0.3 %; Eosinophils % 0.1 %; Lymphocytes # 0.7 10^3/uL (0.8-4.8); Lymphocytes % 6.2 %; Mean Corpuscular HGB Conc 34.2 g/dL (30-55); Mean Corpuscular Hemoglobin 37.9 pg (27-33); Mean Corpuscular Volume 111.1 fl (85-98); Mean Platelet Volume 10.2 fL (7.4-10.4); Monocytes # 0.3 10^3/uL (0.2-0.9); Monocytes % 3.1 %; Neutrophils # 9.94 10^3/uL (1.8-7.7); Nucleated Red Blood Cells % 0 %; Platelet Count 183 10^3/cmm (157-399); Red Blood Count 4.77 10^6/uL (3.85-5.65); Red Cell Distribution Width 12.9 % (12.1-15.1); White Blood Count 11.03 10^3/uL (3.29-11.43)
[2024-09-01] MEDS: hyDRALAzine 20 mg/mL INJ 1 mL 10 MG IVP ×2 (16:44→19:46)
[2024-09-01 17:09] LABS: Alanine Aminotransferase 29 U/L (0-33); Albumin Level 4.7 g/dL (3.5-5.2); Alkaline Phosphatase 130 U/L (35-105); Aspartate Amino Transferase 36 U/L (0-32); Blood Urea Nitrogen 8 mg/dL (6-20); Calcium 9.3 mg/dL (8.5-10.5); Carbon Dioxide 19 mmol/L (22-29); Chloride 98 mmol/L (98-107); Creatinine Clr Calc Pharmacy 153.1507; Glomerular Filtration Rate 175.9 mL/min (90-130); Glucose 146 mg/dL (65-115); Lipase 14 U/L (13-60); Osmolality Calculated 279 mOsm/kg (285-295); Sodium 134 mmol/L (136-145); Total Bilirubin 1.6 mg/dL (0.15-1.2); Total Protein 7.7 g/dL (6.6-8.7)
[2024-09-01 17:12] LABS: Anion Gap 20.6 (5-19); Potassium 3.6 mmol/L (3.5-5.1)
[2024-09-01 17:27] LABS: Lactic Sepsis W/Reflex 3.1 mmol/L (0.5-2.2)
[2024-09-01] MEDS: piperacillin-tazobactam 3.375 GM in sodium chloride 0.9% (plus) 50 ML IV (17:30)
[2024-09-01] MEDS: ondansetron 2 mg/ML SDV 2 mL 4 MG IVP (17:30)
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
[2024-09-01 17:42] LABS: HCG, Serum Qual Negative (Negative)
[2024-09-01 18:34] VITALS: BP 201/109; PULSE 72; O2SAT 100
[2024-09-01 18:35] VITALS: BP 208/118; PULSE 89; O2SAT 99
[2024-09-01 18:45] LABS: Reflex Lactate Order REFLEX LACTIC ORDERD
[2024-09-01] MEDS: lisinopril 20 mg Tablet PO (18:56)
[2024-09-01] MEDS: sodium chloride 0.9% 1,000 ML 75 ML IV (18:56)
[2024-09-01 19:42] VITALS: BP 197/122; PULSE 79; RESP 18; TEMP 36.5; O2SAT 99
[2024-09-01 20:01] VITALS: RESP 18; O2SAT 97
[2024-09-01] MEDS: promethazine 25 mg/mL SDV 1 mL 12.5 MG IM (20:02)
[2024-09-01 20:17] LABS: Lactic Acid level (Lactate) 1.3 mmol/L (0.5-2.2)
[2024-09-01 21:11] VITALS: BP 154/97
[2024-09-02] VITALS (13 sets, daily range): BP systolic 137–166; BP diastolic 78–102; PULSE 90–118; RESP 16–20; TEMP 36.7–37.2; O2SAT 92–99
[2024-09-02] MEDS: BuSPIRONE 10 mg Tablet PO ×2 (00:07→22:30)
[2024-09-02] MEDS: morphine 4 mg/mL SDV 1 mL IVP ×2 (01:58→07:25)
[2024-09-02] MEDS: promethazine 25 mg/mL SDV 1 mL 12.5 MG IM (05:19)
[2024-09-02] MEDS: piperacillin-tazobactam 4.5 GM in sodium chloride 0.9% (plus) 50 ML IV ×2 (05:20→17:25)
[2024-09-02 05:37] LABS: Basophils % 0.2 %; Eosinophils % 0.2 %; Hematocrit 46.6 % (36-47); Lymphocytes # 1.9 10^3/uL (0.8-4.8); Lymphocytes % 12.5 %; Mean Corpuscular HGB Conc 35.2 g/dL (30-55); Mean Corpuscular Hemoglobin 38.2 pg (27-33); Mean Corpuscular Volume 108.6 fl (85-98); Monocytes # 0.8 10^3/uL (0.2-0.9); Monocytes % 5.3 %; Neutrophils # 12.22 10^3/uL (1.8-7.7); Neutrophils % 81.4 %; Nucleated Red Blood Cells % 0 %; Platelet Count 187 10^3/cmm (157-399); Red Blood Count 4.29 10^6/uL (3.85-5.65); White Blood Count 15.01 10^3/uL (3.29-11.43)
[2024-09-02] MEDS: sodium chloride 0.9% 1,000 ML 75 ML IV ×2 (07:40→21:02)
[2024-09-02] MEDS: lisinopril 20 mg Tablet PO ×2 (07:41→17:25)
[2024-09-02] MEDS: duloxetine 20 mg Capsule PO (07:42)
[2024-09-02] MEDS: ondansetron 2 mg/ML SDV 2 mL 4 MG IVP ×3 (07:56→22:30)
--- NOTE | 2024-09-02 08:29 | P.PN_ITS ---
Subjective 2 Subjective: Pain improved Nausea improved Noted WBC up & tachycardic low 100s Abdomen soft, mildly TTP right lower quadrant Afebrile Vitals/I&O/Wt Last Vital Signs Temp 98.5 F 09/02/24 07:37 Pulse 110 H 09/02/24 07:37 Resp 19 H 09/02/24 07:37 BP 153/100 09/02/24 07:37 Pulse Ox 96 09/02/24 07:37 O2 Del Method Room Air 09/02/24 07:37 09/01/24 09/02/24 09/02/24 22:59 06:59 14:59 Intake Total 50 / 50 955 / 955 Balance 50 / 50 955 / 955 Weight last 48 hrs Weight 108 lb Weight 108 lb Weight 108 lb Physical Exam 2 Narrative: HR 100s, sinus rhythm RA unlabored breathing Abdomen soft, mildly TTP right lower quadrant, non distended, non peritonitic Data 09/02/24 05:15 09/01/24 16:23 A&P Assessment and plan (1) Retroperitoneal air: Plan 39yo female who presented following EGD & colonoscopy with contained right colonic perforation. Discussed case with my partners. At this time since patient is not peritonitic, will continue with non operative management. Continue NPO, IV antibiotics, and will serially trend abdominal exam. Discussed with patient who agrees. Attestations 2 Medical Necessity Statement*: IV antibiotics, IV fluids Coding Level of Care Code 62122 Diagnoses Retroperitoneal air K66.8
[2024-09-02] MEDS: HYDROmorphone 1 mg/mL INJ 1 mL 0.4 MG IVP ×4 (09:48→22:29)
[2024-09-02] MEDS: sucralfate 1 gm/10 mL Oral Liq UDC PO ×3 (09:49→21:02)
--- NOTE | 2024-09-02 10:01 | PC.CHAP ---
Pastoral Care Encounter/Spiritual Assessment Type of Contact [] Declined brake linings coater visit [] Patient/Family/Request visit [] Outpatient visit [] Follow-up visit [] Physician referral [] Code/Alert [x] Routine visit [] Staff referral [] Actively dying [] Patient sleeping [] Family support [] [] Out of room [] Palliative care [] [] Receiving care in room [] Pre-surgical visit [] Trauma [] Long length of stay [] ICU visit [] Other: Relational/Emotional Strength [] Patient feels connected with others/family/visitors/staff [x] Distress [x] Loneliness/isolation [] Abandonment Spirituality of Patient [] Person of Sheila [] Attends Hinduism of their Sheila [x] Believes in Prayer [] Reads Bible or Scientology materials [x] There are Spiritual issues to be addressed Resource Director Interventions [x] Prayer [x] Active listening [x] Non-anxious presence [x] Spiritual/emotional support [] Crisis/trauma care [] Spiritual counseling [] Bereavement support [] Provided bereavement packet [] Provided Bible/devotional materials [] Provided toy/stuffed animal, coloring book to patient or family member [] Provided Communion [] Anointing/[place] [] Salvation [x] Completed spiritual assessment [] Other: Impact on Illness or Injury [] Angry [] Fearful [] Anxious [] Often cries [] Exhaustion [] Unable to work [] Unable to attend confucianism [] Unable to walk/stand [] Unable to read [] Unable to drive [] Unable to eat/drink [] Unable to sleep [] Unable to be with family [] Patient intubated [] Other: Summary Time spent with patient 5 min
--- NOTE | 2024-09-02 17:07 | PM.MISC ---
Miscellaneous Note Note: Benign abdomen examined at 1630. Continue non operative management.
[2024-09-03] VITALS (10 sets, daily range): BP systolic 149–190; BP diastolic 91–117; PULSE 96–115; RESP 14–20; TEMP 36.4–37.1; O2SAT 93–99
[2024-09-03] MEDS: piperacillin-tazobactam 4.5 GM in sodium chloride 0.9% (plus) 50 ML IV ×3 (01:57→16:36)
[2024-09-03] MEDS: sucralfate 1 gm/10 mL Oral Liq UDC PO ×4 (02:00→20:20)
[2024-09-03] MEDS: hyDRALAzine 20 mg/mL INJ 1 mL 10 MG IVP (02:08)
[2024-09-03] MEDS: HYDROmorphone 1 mg/mL INJ 1 mL 0.4 MG IVP ×4 (04:22→20:20)
[2024-09-03] MEDS: ondansetron 2 mg/ML SDV 2 mL 4 MG IVP ×4 (04:22→20:21)
[2024-09-03 05:39] LABS: Basophils % 0.3 %; Eosinophils # 0.1 10^3/uL (0.0-0.8); Eosinophils % 1.7 %; Lymphocytes # 1.3 10^3/uL (0.8-4.8); Lymphocytes % 16.6 %; Mean Corpuscular HGB Conc 34.7 g/dL (30-55); Mean Corpuscular Hemoglobin 38.9 pg (27-33); Mean Corpuscular Volume 112.2 fl (85-98); Mean Platelet Volume 10.4 fL (7.4-10.4); Monocytes # 0.4 10^3/uL (0.2-0.9); Monocytes % 5.6 %; Neutrophils % 75.4 %; Nucleated Red Blood Cells % 0 %; Platelet Count 141 10^3/cmm (157-399); Red Blood Count 4.01 10^6/uL (3.85-5.65); Red Cell Distribution Width 13.1 % (12.1-15.1); White Blood Count 7.55 10^3/uL (3.29-11.43)
[2024-09-03] MEDS: lisinopril 20 mg Tablet PO ×2 (08:08→16:36)
[2024-09-03] MEDS: duloxetine 20 mg Capsule PO (08:08)
--- NOTE | 2024-09-03 08:18 | P.PN_ITS ---
Subjective 2 Subjective: No nausea Pain slightly improved White count down to 7 Afebrile Abdomen soft, less tender Vitals/I&O/Wt Last Vital Signs Temp 98.5 F 09/03/24 07:29 Pulse 108 H 09/03/24 07:29 Resp 16 09/03/24 07:29 BP 149/91 09/03/24 07:29 Pulse Ox 96 09/03/24 07:29 O2 Del Method Room Air 09/03/24 07:29 09/02/24 09/03/24 09/03/24 22:59 06:59 14:59 Intake Total 1050 / 5 50 / 2105 Balance 1050 / 5 50 / 2105 Weight last 48 hrs Weight 121 lb Weight 108 lb Weight 108 lb Weight 108 lb Physical Exam 2 Narrative: Chest: Unlabored breathing room air. No lymphadenopathy. Heart: Regular rate and rhythm. Abdomen: Soft, mildly tender RLQ, nondistended. No masses or lymphadenopathy. Data 09/03/24 04:56 09/01/24 16:23 A&P Assessment and plan (1) Retroperitoneal air: Plan 39-year-old female who presented with retroperitoneal air. Responding to nonoperative management. Advancing to clears. Plan for 1 more day of IV antibiotics monitoring of physical exam. Attestations 2 Medical Necessity Statement*: IV antibiotics, IV fluids, serial physical exams. Coding Level of Care Code 88348 Diagnoses Retroperitoneal air K66.8 Time Spent (min) 30
[2024-09-03] MEDS: sodium chloride 0.9% 1,000 ML 75 ML IV ×2 (11:42→23:35)
--- NOTE | 2024-09-03 14:51 | PM.MISC ---
Miscellaneous Note Note: Examined patient at 1430. Patient feels significantly better. On clears. Abdomen soft, mildly TTP RLQ, non distended, non peritonitic. Plan: Clears for today. May advance diet tomorrow if doing well. Continue abx. On discharge complete 14 days of augmentin Follow-up in clinic in 1 week
[2024-09-03] MEDS: BuSPIRONE 10 mg Tablet PO (20:20)
[2024-09-04] MEDS: piperacillin-tazobactam 4.5 GM in sodium chloride 0.9% (plus) 50 ML IV ×2 (02:37→08:14)
[2024-09-04] MEDS: sucralfate 1 gm/10 mL Oral Liq UDC PO ×2 (02:38→08:14)
[2024-09-04] MEDS: ondansetron 2 mg/ML SDV 2 mL 4 MG IVP (02:50)
[2024-09-04 02:51] VITALS: RESP 16
[2024-09-04] MEDS: HYDROmorphone 1 mg/mL INJ 1 mL 0.4 MG IVP ×2 (02:51→08:20)
[2024-09-04 03:00] VITALS: BP 154/88; PULSE 93; RESP 15; TEMP 36.4; O2SAT 96
[2024-09-04 07:00] VITALS: BP 183/112; PULSE 85; RESP 14; TEMP 37.1; O2SAT 98
--- NOTE | 2024-09-04 08:10 | PM.DCS ---
Discharge Providers Date of Admission: 09/01/24 18:08 Date of Discharge: September 04, 2024 Attending Provider at Admission: Huy Rodrigues MD Attending Provider at Discharge: Huy Rodrigues MD Primary Care Provider: Clovis Mcnair Diagnoses at Discharge Discharge Diagnosis (1) Retroperitoneal air: Status: Acute Reason for Visit Reason for Visit: vomiting blood (egd this morning) Hospital Course Hospital Course 39-year-old female who was admitted to the hospital after iatrogenic colonic perforation containing through the retroperitoneum. Patient underwent colonoscopy and presented same day with significant abdominal pain a CT scan of the abdomen pelvis show evidence of free air in the retroperitoneum at the level of the right side of the colon, shay patient is for possible contained perforation. She was started on operative management with pain control, IV antibiotics and n.p.o., by hospital day 2 white count had trended down to normal and tachycardia resolved, she was started on clear liquid diet, which she tolerated, she was passing gas and having bowel movements only complaining of mild abdominal pain on the right lower quadrant the day of discharge. The plan is to discharge her home on 14 days of antibiotics, she will follow-up on Saturday with Dr. Rodrigues to discuss possibility of advancing diet to full liquid then to regular as tolerated. Physical Exam GI: OTHER: Abdomen is soft, minimally tender to palpation in the right lower quadrant, there is no peritonitis there is no distention no other concerning features. Discharge Data Studies Completed and Pending Completed Studies During Hospitalization Category Date Time Status CT chest abdomen pelvis [[place] [id number] Cat Scan 09/01/24 15:41 Completed ] Stat Radiology Impressions Chest/Abdomen/Pelvis CT 09/01/24 15:41 IMPRESSION: No acute findings. IMPRESSION: 1. Extraperitoneal air involving the right abdomen as described above. Uncertain of the etiology. Considerations would include extraperitoneal perforation of a colonic diverticulum. 2. Bilateral ovarian cysts Laboratory Results WBC 7.55 10^3/uL (3.29-11.43) 09/03/24 04:56 RBC 4.01 10^6/uL (3.85-5.65) 09/03/24 04:56 Hgb 15.60 g/dL (11.27-16.99) 09/03/24 04:56 Hct 45.0 % (36-47) 09/03/24 04:56 MCV 112.2 fl (85-98) H 09/03/24 04:56 MCH 38.9 pg (27-33) H 09/03/24 04:56 MCHC 34.7 g/dL (30-55) 09/03/24 04:56 RDW 13.1 % (12.1-15.1) 09/03/24 04:56 Plt Count 141 10^3/cmm (157-399) L 09/03/24 04:56 MPV 10.4 fL (7.4-10.4) 09/03/24 04:56 Neut % (Auto) 75.4 % 09/03/24 04:56 Lymph % (Auto) 16.6 % 09/03/24 04:56 [place] % (Auto) 5.6 % 09/03/24 04:56 Eos % (Auto) 1.7 % 09/03/24 04:56 Baso % (Auto) 0.3 % 09/03/24 04:56 Neut # (Auto) 5.70 10^3/uL (1.8-7.7) 09/03/24 04:56 Lymph # (Auto) 1.3 10^3/uL (0.8-4.8) 09/03/24 04:56 [place] # (Auto) 0.4 10^3/uL (0.2-0.9) 09/03/24 04:56 Eos # (Auto) 0.1 10^3/uL (0.0-0.8) 09/03/24 04:56 Baso # (Auto) 0.0 10^3/uL (0.0-0.1) 09/03/24 04:56 Nucleated RBC % (auto) 0 % 09/03/24 04:56 Nucleated RBCs # 0.0 /100WBC 09/03/24 04:56 Sodium 134 mmol/L (136-145) L 09/01/24 16:23 Potassium 3.6 mmol/L (3.5-5.1) 09/01/24 16:23 Chloride 98 mmol/L (98-107) 09/01/24 16:23 Carbon Dioxide 19 mmol/L (22-29) L 09/01/24 16:23 Anion Gap 20.6 (5-19) H 09/01/24 16:23 BUN 8 mg/dL (6-20) 09/01/24 16:23 Creatinine 0.4 mg/dL (0.5-0.9) L 09/01/24 16:23 GFR Calculation 175.9 mL/min (90-130) H 09/01/24 16:23 Glucose 146 mg/dL (65-115) H 09/01/24 16:23 Calculated Osmolality 279 mOsm/kg (285-295) L 09/01/24 16:23 Lactic Acid 3.1 mmol/L (0.5-2.2) H 09/01/24 16:23 Lactic Acid (Sepsis) 1.3 mmol/L (0.5-2.2) 09/01/24 19:54 Calcium 9.3 mg/dL (8.5-10.5) 09/01/24 16:23 Total Bilirubin 1.6 mg/dL (0.15-1.2) H 09/01/24 16:23 AST 36 U/L (0-32) H 09/01/24 16:23 ALT 29 U/L (0-33) 09/01/24 16:23 Alkaline Phosphatase 130 U/L (35-105) H 09/01/24 16:23 Total Protein 7.7 g/dL (6.6-8.7) 09/01/24 16:23 Albumin 4.7 g/dL (3.5-5.2) 09/01/24 16:23 Globulin 3.0 g/dL (1.3-4.6) 09/01/24 16:23 Lipase 14 U/L (13-60) 09/01/24 16:23 HCG, Qual Negative (Negative) 09/01/24 16:23 Vitals Last Vital Signs Temp 98.7 F 09/04/24 07:00 Pulse 85 09/04/24 07:00 Resp 14 09/04/24 07:00 BP 183/112 09/04/24 07:00 Pulse Ox 98 09/04/24 07:00 O2 Del Method Room Air 09/04/24 07:00 Discharge Plan Discharge Patient Disposition: Home Condition: Stable Prescriptions: New amoxicillin-pot clavulanate 875-125 mg tablet 1 tab PO Q12H 14 Days Qty: 28 0RF ketorolac 10 mg tablet 10 mg PO Q8H PRN (Reason: pain) 3 Days Qty: 10 0RF Continued duloxetine 20 mg capsule,delayed release(DR/EC) 20 mg PO DAILY Qty: 90 0RF buspirone 10 mg tablet 10 mg PO TID PRN (Reason: anxiety) Qty: 90 11RF lisinopril 20 mg tablet 20 mg PO BID Qty: 180 3RF ondansetron 8 mg tablet,disintegrating 8 mg PO Q8H PRN (Reason: nausea and vomiting) Qty: 20 0RF sucralfate 1 gram tablet 1 g PO TID Discharge Orders: Discharge Order (Routine); Ordered 09/04/24 Ordered By: Сергей Frias Referrals: Huy Rodrigues MD [Physician] - 1 week (Friday 09/07) Clovis Mcnair NP [Primary Care Provider] - Discharge Diet: Clear Liquid Discharge Activity: Increase activity as tolerated Patient Instructions: Opioid Safety, Full Liquid Diet (DC) Activity Restrictions/Additional Instructions: 1. Take antibiotics as prescribed 2. Take enough clear liquids to stay hydrated. You may advance your diet to full liquids on Saturday 3. Follow-up in general surgery clinic Saturday. Discharge Attestations Time Spent in Discharge Care*: greater than 30 min Quality Metrics Clinical Quality Measures [ No reported AMI, CVA or VTE this stay] Coding Level of Care Code Acute Code for Chg Fwd Diagnoses Retroperitoneal air K66.8
[2024-09-04] MEDS: lisinopril 20 mg Tablet PO (08:13)
[2024-09-04] MEDS: duloxetine 20 mg Capsule PO (08:14)
[2024-09-04 08:20] VITALS: RESP 18; O2SAT 98
[2024-09-04 12:00] VITALS: BP 149/96; PULSE 97; RESP 15; TEMP 37.1; O2SAT 99
[2024-09-04 12:09] VITALS: BP 149/96; PULSE 97; O2SAT 99
== END 2024-09-04 12:10 | disposition home or self-care (01) ==
LOC: ER 17:47 → MEDSURG 18:08
PROVIDERS: Admitting Provider Student in an Organized Health Care Education/Training Program; Emergency Provider Emergency Medicine; PCP Clinical Nurse Specialist Adult Health; Visit Provider Student in an Organized Health Care Education/Training Program
DX: K91.71 Accidental puncture and laceration of a digestive system organ or structure during a digestive system procedure (principal); Y83.9 Surgical procedure, unspecified as the cause of abnormal reaction of the patient, or of later complication, without mention of misadventure at the time of the procedure; K66.8 Other specified disorders of peritoneum; F17.200 Nicotine dependence, unspecified, uncomplicated
CPT/HCPCS: 36415; 71250; 74176; 80053; 83605; 83690; 84703; 85025; 96365; 96366; 96372; 96375; 96376; 99285; G0378; J0360; J1171; J1200; J2270; J2405; J2543; J2550; J2765; J7030

== ENCOUNTER → 2024-12-09 14:34 | Outpatient (BNVA) | payer MEDICAID, SELFPAY | PROVIDERS: PCP Clinical Nurse Specialist Adult Health; Visit Provider Registered Nurse Neonatal Intensive Care | DX: J02.9 Acute pharyngitis, unspecified (principal) | CPT/HCPCS: 87880 ==

== ENCOUNTER 2024-12-17 05:38 | Emergency (ER) | payer MEDICAID, SELFPAY ==
[2024-12-17] VITALS (21 sets, daily range): BP systolic 94–142; BP diastolic 53–102; PULSE 96–121; RESP 16–24; TEMP 36.6; O2SAT 93–100; BMI 21.8
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
--- NOTE | 2024-12-17 06:09 | CTR_ITS ---
PROCEDURE INFORMATION: Exam: CT Abdomen And Pelvis With Contrast Exam date and time: 12/17/2024 6:31 AM Age: 39 years old Clinical indication: Nausea and vomiting; Abdominal pain; Localized; Upper; Prior surgery; Surgery date: 6+ months; Surgery type: Hyst; Additional info: Abd pain TECHNIQUE: Imaging protocol: Computed tomography of the abdomen and pelvis with contrast. Radiation optimization: All CT scans at this facility use at least one of these dose optimization techniques: automated exposure control; mA and/or kV adjustment per patient size (includes targeted exams where dose is matched to clinical indication); or iterative reconstruction. Contrast material: OMNI 350; Contrast volume: 100 ml; Contrast route: INTRAVENOUS (IV); COMPARISON: [place] [id number] 09/01/2024 4:04 PM RADIATION DOSE METRICS: Total DLP (mGy-cm): 437.3 FINDINGS: Lungs: Lung bases are clear as visualized. Heart: Base of heart is unremarkable as visualized. Liver: Normal. No mass. Gallbladder and biliary ducts: Status post cholecystectomy. Pancreas: Normal. No ductal dilation. Spleen: Normal. No splenomegaly. Adrenal glands: Normal. No mass. Kidneys and ureters: Normal. No hydronephrosis. Stomach and bowel: Unremarkable. No obstruction. No mucosal thickening. Appendix: No evidence of appendicitis. Intraperitoneal space: Unremarkable. No free air. No significant fluid collection. Vasculature: Scattered atherosclerotic disease. Lymph nodes: Unremarkable. No enlarged lymph nodes. Urinary bladder: Unremarkable as visualized. Reproductive: Multiple right ovarian cysts, which appear to share septations. Overall the lesions measure a collective 5.5 x 2.5 x 4.6 cm. Status post hysterectomy. Bones/joints: Mild scattered degenerative changes of the visualized osseous structures. Soft tissues: Unremarkable. CT/CT abdomen pelvis w con* [id number] IMPRESSION: Multiple right ovarian cysts which appear to share septations. Pelvic ultrasound should be performed for further assessment as it is difficult to exclude cystic neoplasm by this modality.
[2024-12-17] MEDS: ondansetron 2 mg/ML SDV 2 mL 4 MG IVP (06:30)
[2024-12-17 06:35] LABS: Gastricult Occult Blood Negative (Negative)
[2024-12-17] MEDS: iohexol 350 mg/mL 500 mL Btl (per mL) IV (06:35)
[2024-12-17 06:40] LABS: Basophils % 0.1 %; Eosinophils % 0.3 %; Hematocrit 42.1 % (36-47); Lymphocytes # 1.1 10^3/uL (0.8-4.8); Lymphocytes % 7.3 %; Mean Corpuscular HGB Conc 35.6 g/dL (30-55); Mean Corpuscular Hemoglobin 37.3 pg (27-33); Mean Corpuscular Volume 104.7 fl (85-98); Mean Platelet Volume 10.3 fL (7.4-10.4); Monocytes # 0.8 10^3/uL (0.2-0.9); Monocytes % 5.1 %; Neutrophils # 12.86 10^3/uL (1.8-7.7); Neutrophils % 86.9 %; Nucleated Red Blood Cells % 0 %; Platelet Count 276 10^3/cmm (157-399); Red Blood Count 4.02 10^6/uL (3.85-5.65); Red Cell Distribution Width 12.9 % (12.1-15.1); White Blood Count 14.79 10^3/uL (3.29-11.43)
[2024-12-17 06:43] LABS: Bilirubin Urine 2+ (Negative); Blood Urine Negative (Negative); Glucose Urine UA Negative (Normal); Ketones Urine 2+ (Negative); Leukocyte Esterase Urine Trace (Negative); Nitrate Urine Negative (Negative); Protein Urine 2+ (Negative); Specific Gravity, Urine 1.024 (1.005-1.030); Urine Appearance Turbid (CLEAR); pH Urine 5.5 (5-7)
[2024-12-17 06:45] LABS: HCG, Serum Qual Negative (Negative)
[2024-12-17 06:50] LABS: Alanine Aminotransferase 17 U/L (0-33); Albumin Level 5.1 g/dL (3.5-5.2); Alkaline Phosphatase 131 U/L (35-105); Anion Gap 25.7 (5-19); Aspartate Amino Transferase 27 U/L (0-32); Blood Urea Nitrogen 16 mg/dL (6-20); Calcium 10.3 mg/dL (8.5-10.5); Carbon Dioxide 23 mmol/L (22-29); Chloride 92 mmol/L (98-107); Creatinine Clr Calc Pharmacy 93.2703; Glomerular Filtration Rate 92.2 mL/min (90-130); Glucose 145 mg/dL (65-115); Lipase 13 U/L (13-60); Osmolality Calculated 288 mOsm/kg (285-295); Potassium 3.7 mmol/L (3.5-5.1); Sodium 137 mmol/L (136-145); Total Bilirubin 0.9 mg/dL (0.15-1.2); Total Protein 8.1 g/dL (6.6-8.7)
[2024-12-17] MEDS: sodium chloride 0.9% 1,000 ML 999 ML IV ×3 (07:01→11:48)
[2024-12-17] MEDS: morphine 4 mg/mL SDV 1 mL IVP ×2 (07:02→08:00)
[2024-12-17 07:05] LABS: UA Manual Slide Review YES; Urine Color Orange (Yellow)
[2024-12-17 07:06] LABS: Add Urine Microscopic? YES; Bacteria Urine 1+ /hpf; Squamous Epithelial Cell Urine 21-50 /hpf (0-5); WBC Urine 0-4 /hpf (0-5)
--- NOTE | 2024-12-17 07:30 | US_ITS ---
WS: [id number] ULTRASOUND PELVIS TECHNIQUE: Transabdominal. CLINICAL INFORMATION: Ovarian cysts LMP: Limited : No. COMPARISON: None. FINDINGS: Prior hysterectomy. Adnexa: Normal. 2 RIGHT ovarian cyst visualized described below. LEFT ovary not visualized. Free fluid: None. Other findings: None. US/US pelvic limited [id number] IMPRESSION: 1. Prior hysterectomy. 2. LEFT ovary not visualized. 3. RIGHT ovarian cysts measuring 2.0 x 2.4 x 2.2 cm and 1.7 x 2.7 x 1.8 cm wit h 1 or 2 septations. 4. No other suspicious findings.
[2024-12-17] MEDS: prochlorperazine 10 mg/2 mL Inj IVP (07:49)
[2024-12-17 12:13] LABS: Lactic Sepsis W/Reflex 2.3 mmol/L (0.5-2.2)
[2024-12-17 13:37] LABS: Reflex Lactate Order REFLEX LACTIC ORDERD
[2024-12-17 15:51] LABS: Lactic Acid level (Lactate) 1.6 mmol/L (0.5-2.2)
--- NOTE | 2024-12-17 16:02 | PC.NURSE ---
EDIN this nurse in room at 1545 to talk with patient about her decision to leave [facility]. Patient was very pleasant to talk to. She stated that the nursing care and care that she received from Dr. Mclean has been good. She stated that she has been in the ER bed for hours and she was done waiting for a bed upstairs. She stated that she would see her GI doctor at [facility] if needed. I informed her that if symptoms worsen, she could come back to the hospital. No further needs voiced by patient at this time.
== END 2024-12-17 15:45 | disposition admitted as inpatient to this hospital (09) ==
LOC: ER 05:59 → ER IP 14:23
PROVIDERS: Emergency Provider Family Medicine; PCP Clinical Nurse Specialist Adult Health
DX: R11.2 Nausea with vomiting, unspecified (principal); R00.0 Tachycardia, unspecified; Z72.0 Tobacco use; I10 Essential (primary) hypertension
CPT/HCPCS: 36415; 74177; 76857; 80053; 81001; 82271; 83605; 83690; 84703; 85025; 87040; 96374; 96375; 96376; 99285; J0780; J2270; J2405; J7030

== ENCOUNTER → 2025-01-06 10:00 | Outpatient (BNVA) | payer MEDICAID, SELFPAY | PROVIDERS: PCP Clinical Nurse Specialist Adult Health; Visit Provider Clinical Nurse Specialist Adult Health | DX: J40 Bronchitis, not specified as acute or chronic (principal); R00.0 Tachycardia, unspecified; N95.1 Menopausal and female climacteric states; K52.9 Noninfective gastroenteritis and colitis, unspecified; R11.2 Nausea with vomiting, unspecified | CPT/HCPCS: 82784; 86003; 86008; 86140; 86364 ==

== ENCOUNTER → 2025-01-07 10:14 | Outpatient (BNVA) | payer MEDICAID, SELFPAY | PROVIDERS: PCP Clinical Nurse Specialist Adult Health; Visit Provider Clinical Nurse Specialist Adult Health | DX: K52.9 Noninfective gastroenteritis and colitis, unspecified (principal) | CPT/HCPCS: 83520; 83993 ==

== ENCOUNTER 2025-04-25 10:39 | Emergency (ER) | payer MEDICAID, SELFPAY ==
[2025-04-25 10:44] VITALS: BP 149/99; PULSE 70; RESP 16; TEMP 36.4; O2SAT 98; BMI 23.1
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
[2025-04-25 11:13] LABS: Basophils % 0.3 %; Hematocrit 38.5 % (36-47); Lymphocytes % 7.8 %; Mean Corpuscular HGB Conc 35.6 g/dL (30-55); Mean Corpuscular Volume 106.6 fl (85-98); Mean Platelet Volume 10.1 fL (7.4-10.4); Monocytes # 0.4 10^3/uL (0.2-0.9); Monocytes % 3.4 %; Neutrophils # 11.23 10^3/uL (1.8-7.7); Neutrophils % 88.1 %; Nucleated Red Blood Cells % 0 %; Platelet Count 280 10^3/cmm (157-399); Red Blood Count 3.61 10^6/uL (3.85-5.65); Red Cell Distribution Width 12.2 % (12.1-15.1); White Blood Count 12.76 10^3/uL (3.29-11.43)
[2025-04-25] MEDS: morphine 4 mg/mL SDV 1 mL IVP ×2 (11:16→13:39)
[2025-04-25] MEDS: diphenhydrAMINE 50 mg/mL SDV 1mL IVP (11:16)
--- NOTE | 2025-04-25 11:16 | CTR_ITS ---
PROCEDURE INFORMATION: Exam: CT Abdomen And Pelvis With Contrast Exam date and time: 04/25/2025 11:40 AM Age: 40 years old Clinical indication: Vomiting; Abdominal pain; Prior surgery; Surgery date: 6+ months; Surgery type: Partial hysto; Additional info: Abd pain TECHNIQUE: Imaging protocol: Computed tomography of the abdomen and pelvis with contrast. Axial, coronal and sagittal reformatted images were created and reviewed. Radiation optimization: All CT scans at this facility use at least one of these dose optimization techniques: automated exposure control; mA and/or kV adjustment per patient size (includes targeted exams where dose is matched to clinical indication); or iterative reconstruction. Contrast material: OMNI 350; Contrast volume: 100 ml; Contrast route: INTRAVENOUS (IV); COMPARISON: CT abdomen pelvis w con* [id number] 12/17/2024 6:31 AM RADIATION DOSE METRICS: Total DLP (mGy-cm): 371.59 FINDINGS: Liver: Mild hepatomegaly. Diffuse hepatic steatosis. Gallbladder and biliary ducts: Status post cholecystectomy. No biliary ductal dilatation. Pancreas: Unremarkable. Spleen: Unremarkable. Adrenal glands: Normal. No mass. Kidneys and ureters: No mass. No radiodense calculi. No hydronephrosis. Stomach and bowel: Submucosal fat deposition in the colon, consistent with chronic inflammation. No definite bowel wall thickening. No obstruction. No pneumatosis. Appendix: Appendix not identified with certainty but no right lower quadrant inflammatory change to suggest acute appendicitis. Intraperitoneal space: No free fluid. No organized fluid collection. No free air. Vasculature: Mild atherosclerotic disease. No aneurysm or dissection. Lymph nodes: No pathologically enlarged lymph nodes. Urinary bladder: Unremarkable as visualized. Reproductive: Status post hysterectomy. Bilateral ovarian follicles. Bones/joints: No acute osseous abnormality. Osteopenia. Mild degenerative changes. Soft tissues: Small, fat containing supraumbilical hernia. CT/CT abdomen pelvis w con* [id number] [address]: 1. No CT evidence of acute intra-abdominal or pelvic pathology. 2. Additional findings, as above.
[2025-04-25] MEDS: metoclopramide 5 mg/mL SDV 2 mL 10 MG IVP (11:17)
[2025-04-25] MEDS: sodium chloride 0.9% 1,000 ML 999 ML IV (11:17)
[2025-04-25 11:30] LABS: Alanine Aminotransferase 24 U/L (0-33); Albumin Level 4.9 g/dL (3.5-5.2); Alkaline Phosphatase 141 U/L (35-105); Aspartate Amino Transferase 34 U/L (0-32); Blood Urea Nitrogen 12 mg/dL (6-20); Calcium 9.5 mg/dL (8.5-10.5); Carbon Dioxide 24 mmol/L (22-29); Chloride 99 mmol/L (98-107); Creatinine Clr Calc Pharmacy 110.5152; Glomerular Filtration Rate 109.6 mL/min (90-130); Glucose 158 mg/dL (65-115); Lipase 10 U/L (13-60); Osmolality Calculated 295 mOsm/kg (285-295); Sodium 141 mmol/L (136-145); Total Protein 7.9 g/dL (6.6-8.7)
[2025-04-25] MEDS: iohexol 350 mg/mL 500 mL Btl (per mL) IV (11:37)
[2025-04-25 11:38] LABS: Anion Gap 22.1 (5-19); Potassium 4.1 mmol/L (3.5-5.1)
[2025-04-25] MEDS: ondansetron 2 mg/ML SDV 2 mL 4 MG IVP (13:39)
[2025-04-25 13:40] VITALS: BP 133/110; PULSE 91; O2SAT 100
== END 2025-04-25 14:07 | disposition home or self-care (01) ==
PROVIDERS: Emergency Provider Emergency Medicine; PCP Clinical Nurse Specialist Adult Health
DX: R11.2 Nausea with vomiting, unspecified (principal); Z72.0 Tobacco use; I10 Essential (primary) hypertension
CPT/HCPCS: 74177; 80053; 83690; 85025; 96361; 96374; 96375; 96376; 99285; J1200; J2270; J2405; J2765; J7030

== ENCOUNTER → 2025-07-29 10:53 | Outpatient (BNVA) | payer MEDICAID, SELFPAY | PROVIDERS: PCP Clinical Nurse Specialist Adult Health; Visit Provider Clinical Nurse Specialist Adult Health | DX: I10 Essential (primary) hypertension (principal); R63.5 Abnormal weight gain; K80.20 Calculus of gallbladder without cholecystitis without obstruction; K29.50 Unspecified chronic gastritis without bleeding; F32.9 Major depressive disorder, single episode, unspecified | CPT/HCPCS: 80053; 80061; 82306; 82607; 84439; 84443; 84481; 85025; 85651; 86038; 86140 ==

== ENCOUNTER 2025-08-03 10:32 | Emergency (ER) | payer MEDICAID, SELFPAY ==
[2025-08-03] VITALS (7 sets, daily range): BP systolic 144–178; BP diastolic 78–122; PULSE 82–102; RESP 16; TEMP 36.4; O2SAT 96–100; BMI 24.9
--- OUTSIDE RECORDS SUMMARY | 2025-08-03 10:42 | XMS_ITS | Clinical Summary ---
Author Organization [facility] Address [address] [place] [address] Phone Care Team Providers Care Student Ambassador Name Role Phone Unavailable Primary Care Provider Unavailabl e Medications busPIRone (BUSPAR) 10 mg tablet Take 10 mg by mouth 3 times daily as needed for Anxiety. 4 Active cloNIDine HCL (CATAPRES) 0.1 mg tablet TAKE 1 TABLET BY MOUTH TWICE DAILY NEEDED FOR hypertensive emergency. FOR systolic BLOOD PRESSURE greater THAN 180 or diastolic BLOOD PRESSURE greater THAN 100 4 Active DULoxetine (CYMBALTA) 20 mg Capsule, Delayed Release(E.C.) Take 1 Capsule by mouth daily. 4 Active hydroCHLOROthia zide 25 mg tablet Take 1 Tablet by mouth daily. 4 Active lisinopriL (PRINIVIL) 20 mg tablet Take 1 Tablet by mouth 2 times daily. 4 Active sucralfate (CARAFATE) 1 gram tablet TAKE 1 TABLET BY MOUTH THREE TIMES DAILY FOR SIX weeks 4 Active pantoprazole (Protonix) 40 mg Tablet, Delayed Release (E.C.) Take 1 Tablet (40 mg) by mouth 2 times daily. 180 Tablet 2 4 Active ondansetron (ZOFRAN) 4 mg Tablet Take 1 Tablet (4 mg) by mouth every 8 hours as needed for Nausea/Emesis. 30 Tablet 2 5 Active colestipoL (COLESTID) 1 gram tablet TAKE 1 TABLET BY MOUTH TWICE DAILY 60 Tablet 2 5 Active Active Problems Problem Noted Date Diagnosed Date GERD (gastroesophageal reflux disease) 5 Chronic diarrhea 03/02/2025 Overview (03/02/2025): Responsive to Colestid Stool for alpha gal, celiac sprue, pancreatic insufficiency negative Encounters Date Type Department Care Team Description 07/24/[address] [phone] Jonnie Drew, DO 07/20/[address] [address] Jonnie Drew, DO 06/26/[address] [address] Jonnie Drew, DO 06/08/2025 External Device Data [facility] Provider, Abstract 06/07/[address] [phone] Jonnie Drew, DO 05/19/2025 External Device Data [facility] Provider, Abstract 05/18/2025 External Device Data [facility] Provider, Abstract from Last 3 Months Social History Tobacco Use Types Packs/Day Years Used Date Smoking Tobacco: Every Day Cigarettes Tobacco Cessation:Ready to Q uit: No; Counseling Given: Yes Comments Unknown Sex and Gender Information Value Date Recorded Sex Assigned at Not on file Legal Sex Female 10:57 AM CDT Gender Identity Not on file Sexual Orientation Not on file Last Filed Vital Signs Vital Sign Reading Time Taken Comments Blood Pressure 133/88 10/06/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 Pulse 109 10/06/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 Temperature - - Respiratory Rate - - Oxygen Saturation - - Inhaled Oxygen Concentration - - Weight 53.5 kg (118 lb) 10/06/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 Height 162.6 cm (5' 4 ) 10/06/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 Body Mass Index 20.25 10/06/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 Plan of Treatment Health Maintenance Due Date Last Done Comments DTAP/TDAP/TD VACCINES (6 - Tdap) 1994 12/28/1987, 12/18/1984, 1983, Additional history exists HEPATITIS B VACCINES (1 of 3 - 19+ 3-dose series) 2002 HPV/Cotest (21-29) 2004 HPV VACCINES (1 - 3-dose SCD M series) 2010 CERVICAL CANCER SCREENING 2013 HPV/Cotest (30-65) 2013 PAP SMEAR 2013 BREAST CANCER SCREENING 2023 INFLUENZA VACCINE (#1) 2025 Insurance
--- OUTSIDE RECORDS SUMMARY | 2025-08-03 10:42 | XMS_ITS | Encounter Summary ---
Author Organization [facility] Address [address] [place] [address] Care Team Providers Care Histology Supervisor Name Role Phone Unavailable Primary Care Provider Unavailabl e Reason for Visit * Reason Comments Med Refill Encounter Details Date Type Department Care Team (Late st Contact Info) Description 07/20/2025 Refill [facility]- [place] [address] [facility] [address] [place] [phone] Jonnie Drew DO [address] [facility] [address] [place] [address] Social History Tobacco Use Types Packs/Day Years Used Date Smoking Tobacco: Every Day Cigarettes Comments Unknown Sex and Gender Information Value Date Recorded Sex Assigned at Not on file Legal Sex Female 10:57 AM CDT Gender Identity Not on file Sexual Orientation Not on file documented as of this encounter Plan of Treatment Not on file documented as of this encounter Visit Diagnoses Not on filedocumented in this encounter
--- OUTSIDE RECORDS SUMMARY | 2025-08-03 10:42 | XMS_ITS | Encounter Summary ---
Author Organization [facility] Address [address] [place] [address] Care Team Providers Care Print Buyer Name Role Phone Unavailable Primary Care Provider Unavailabl e Reason for Visit * Reason Comments Med Refill Encounter Details Date Type Department Care Team (Late st Contact Info) Description 07/24/2025 Refill [facility]- [place] [address] [facility] [address] [place] [phone] Jonnie Drew DO [address] [facility] [address] [place] [address] Social History Tobacco Use Types [...]
[2025-08-03] MEDS: ondansetron 2 mg/ML SDV 2 mL 4 MG IVP (10:49)
--- NOTE | 2025-08-03 11:00 | CT_ITS ---
WS: [id number] CT ABDOMEN AND PELVIS WITH CONTRAST HISTORY: abd pain TECHNIQUE: Imaging performed of the abdomen and pelvis with IV contrast. Single phase imaging of the abdomen. Coronal and sagittal reformats are submitted. All CT scans at [facility] use at least one of these dose optimization techniques: automated exposure control; mA and/or kV adjustment per patient size (includes targeted exams where dose is matched to clinical indication); or iterative reconstruction. IV CONTRAST: Omnipaque 350; 100 mL IV. Oral contrast: No DLP: 384.83 mGy.cm COMPARISON: 04/25/2025 Lower thorax: Lung bases are clear. Heart is normal size. Small hiatal hernia. Liver/biliary system: Liver is mildly enlarged. Mild focal fatty sparing along the falciform ligament. Normal portal vein. Gallbladder: Prior cholecystectomy. Pancreas: Normal size pancreas and pancreatic duct. No adjacent inflammation. Spleen: Normal size spleen. No mass or infarct. Adrenal glands: Normal. Right kidney: Normal. Left kidney: Normal. Aorta: Normal. Lymphadenopathy: None. Free fluid: None. GI tract: Stomach is normally distended with fluid. No small bowel obstruction. The appendix is not identified. There is diffuse submucosal fat deposition throughout majority of the colon. This is similar to the prior study. No adjacent pericolonic inflammatory changes. Beginning in the distal sigmoid extending to the rectum is mild increased wall thickening with enhancement suggesting a distal colitis. Abdominal wall: Fat containing umbilical hernia. Pelvis: RIGHT adnexal septated mass measures 3.0 x 3.0 x 3.8 cm. This is most likely a cluster of ovarian cysts. No adjacent free fluid. Uterus is absent. Bones: Unremarkable. CT/CT abdomen pelvis w con* [id number] IMPRESSION: 1. No GI tract obstruction. 2. Appendix is not identified. 3. Submucosal fat deposition throughout majority of the colon. This is most li kameron due to obesity but can also be noted with chronic inflammatory bowel disea se, celiac disease and chemotherapy. 4. There is very mild wall thickening in the distal sigmoid into the rectum wi th very slight mild colitis. No adjacent fluid collection. 5. RIGHT ovarian cystic mass measures 3.0 x 3.0 x 3.8 cm. Most consistent with a complex ovarian cyst. This can be further evaluated by transvaginal pelvic u ltrasound. 6. The appendix is not identified. 7. Prior cholecystectomy. 8. No renal obstruction.
[2025-08-03 11:03] LABS: Hematocrit 39.0 % (36-47); Hemoglobin 13.70 g/dL (11.27-16.99); Mean Corpuscular HGB Conc 35.1 g/dL (30-55); Mean Corpuscular Hemoglobin 36.4 pg (27-33); Mean Corpuscular Volume 103.7 fl (85-98); Nucleated Red Blood Cells % 0 %; Platelet Count 326 10^3/cmm (157-399); Red Blood Count 3.76 10^6/uL (3.85-5.65); White Blood Count 10.93 10^3/uL (3.29-11.43)
[2025-08-03 11:13] LABS: Gastricult Occult Blood Positive (Negative); Gastricult Occult PH 4.5 PH (1.5-3.5)
[2025-08-03 11:21] LABS: Alanine Aminotransferase 26 U/L (0-33); Albumin Level 4.7 g/dL (3.5-5.2); Alkaline Phosphatase 127 U/L (35-105); Anion Gap 19.4 (5-19); Aspartate Amino Transferase 45 U/L (0-32); Blood Urea Nitrogen 14 mg/dL (6-20); Calcium 9.1 mg/dL (8.5-10.5); Carbon Dioxide 25 mmol/L (22-29); Chloride 99 mmol/L (98-107); Creatinine Clr Calc Pharmacy 114.0138; Globulin 2.9 g/dL (1.3-4.6); Glucose 161 mg/dL (65-115); Lipase 12 U/L (13-60); Osmolality Calculated 294 mOsm/kg (285-295); Potassium 3.4 mmol/L (3.5-5.1); Sodium 140 mmol/L (136-145); Total Protein 7.6 g/dL (6.6-8.7)
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
[2025-08-03] MEDS: pantoprazole 40 mg SDV 80 MG IVP (11:59)
[2025-08-03 12:02] LABS: Glucose Urine UA Negative (Normal); Nitrate Urine Negative (Negative); Specific Gravity, Urine 1.020 (1.005-1.030)
[2025-08-03] MEDS: iohexol 350 mg/mL 500 mL Btl (per mL) IV (12:41)
[2025-08-03 12:43] LABS: Add Urine Microscopic? YES
[2025-08-03] MEDS: LORazepam 1 MG/0.5 ML injection IVP (14:02)
[2025-08-03] MEDS: haloperidol inj 5 mg/mL INJ 1 mL 2.5 MG IVP (14:06)
--- NOTE | 2025-08-03 14:48 | PC.NURSE ---
Pt resting in bed with eyes closed, VS 88 ehart rate RR 15, and O2 RA 97% with bp 144/78. Pt has had no emesis since previous administered medications.
== END 2025-08-03 14:51 | disposition home or self-care (01) ==
PROVIDERS: Emergency Provider Family Medicine; PCP Clinical Nurse Specialist Adult Health
DX: K52.9 Noninfective gastroenteritis and colitis, unspecified (principal); Z72.0 Tobacco use; I10 Essential (primary) hypertension
CPT/HCPCS: 74177; 80053; 81001; 82271; 83690; 85025; 96361; 96374; 96375; 99285; J0780; J1630; J2060; J2405; J2470; J7030